=== PATIENT | male | born 1995 | race Caucasian/White ===

== ENCOUNTER 2017-04-29 22:46 | Emergency (ER) | payer MEDICARE, OTHER ==
[~2017-04-29] VITALS: Ht 175.3 cm; Wt 136.4 kg
[~2017-04-29 22:46] MED LIST: AMIT10TA6 PO; DIVA250T4 PO; OLAN15TA2 PO
[2017-04-29] MEDS ORDERED: OLANZapine 5 MG TABLET PO ONE (23:00)
[2017-04-29] MEDS ORDERED: LORazepam 2 MG TABLET PO ONE (23:00)
[2017-04-29] MEDS ORDERED: DiphenhydrAMINE HCL 25 MG CAPSULE PO ONE (23:00)
[2017-04-29] MEDS ORDERED: DIPH50 PO (23:02)
[2017-04-29] MEDS ORDERED: OLAN10TA3 PO (23:02)
[2017-04-29] MEDS ORDERED: OMEG-135 PO (23:02)
[2017-04-29] MEDS ORDERED: QUET200T PO (23:02)
[2017-04-29] MEDS ORDERED: TRAZ150 PO (23:02)
[2017-04-29] MEDS ORDERED: ALBU8HFA4 IH (23:02)
[2017-04-29] MEDS ORDERED: PRAZ2 PO (23:02)
[2017-04-29] MEDS ORDERED: SERT100T12 PO (23:02)
[2017-04-29] MEDS ORDERED: OMEP20 PO (23:02)
[2017-04-29] MEDS ORDERED: GABA-533 PO (23:02)
[2017-04-29] MEDS ORDERED: TOPI100T37 PO (23:02)
[2017-04-30 00:22] VITALS: BP 131/76
== END 2017-04-30 00:59 | disposition home or self-care (01) ==
LOC: EMS 23:08
DX: F32.9 Major depressive disorder, single episode, unspecified (principal); J45.909 Unspecified asthma, uncomplicated; F20.9 Schizophrenia, unspecified; F17.210 Nicotine dependence, cigarettes, uncomplicated; F11.10 Opioid abuse, uncomplicated; F12.90 Cannabis use, unspecified, uncomplicated; F19.90 Other psychoactive substance use, unspecified, uncomplicated
CPT/HCPCS: 99284

== ENCOUNTER 2017-12-02 21:07 | Emergency (ER) | payer MEDICARE, OTHER ==
[~2017-12-02] VITALS: Ht 175.3 cm; Wt 137.3 kg
[~2017-12-02 21:07] MED LIST changes: +ALBU8HFA4 IH; +DIPH50 PO; +GABA-533 PO; +OLAN10TA3 PO; +OMEG-135 PO; +OMEP20 PO; +PRAZ2 PO; +QUET200T PO; +SERT100T12 PO; +TOPI100T37 PO; +TRAZ150 PO
[2017-12-02] MEDS ORDERED: TERB250T51 PO (21:36)
[2017-12-02] MEDS ORDERED: DIPH50 PO (21:36)
[2017-12-02] MEDS ORDERED: OMEP20 PO (21:36)
[2017-12-02] MEDS ORDERED: HALO5TAB2 PO (21:36)
[2017-12-02] MEDS ORDERED: OLAN10VI3 IM (21:36)
[2017-12-02] MEDS ORDERED: OLAN10TA3 PO ×2 (21:36)
[2017-12-02] MEDS ORDERED: HALO5I IM (21:36)
[2017-12-02] MEDS ORDERED: QUET100T PO (21:36)
[2017-12-02] MEDS ORDERED: GABA-531 PO (21:36)
[2017-12-02] MEDS ORDERED: VALP250 PO ×2 (21:36)
[2017-12-02] MEDS ORDERED: OLAN10VI3 PO (21:36)
[2017-12-02 21:43] LABS: BASOPHILS % (AUTO) 0.5 % (0.0-2.0); EOSINOPHILS % (AUTO) 1.7 % (1.0-6.0); HEMATOCRIT 41.4 % (41-53); HEMOGLOBIN 14.3 g/dL (13.5-17.5); LYMPHOCYTES # (AUTO) 2.6 K/uL (1.0-4.8); LYMPHOCYTES % (AUTO) 31.2 % (22.0-44.0); MEAN CORPUSCULAR HEMOGLOBIN 34.1 pg (26.0-34.0); MEAN CORPUSCULAR HGB CONC 34.5 G/dL (31.0-37.0); MEAN CORPUSCULAR VOLUME 99 fL (80-100); MONOCYTES # (AUTO) 0.8 K/uL (0.1-1.0); NEUTROPHILS # (AUTO) 4.8 K/uL (1.8-7.7); NEUTROPHILS % (AUTO) 57.6 % (40.0-70.0); PLATELET COUNT (AUTO) 236 K/uL (150-450); RED BLOOD CELL COUNT(AUTO) 4.19 MIL/uL (4.50-5.90); RED CELL DISTRIBUTION WIDTH 13.2 % (11.5-14.5)
[2017-12-02 21:50] LABS: AMPHET/METH SCREEN,URINE NEGATIVE (NEGATIVE); BARBITURATE SCREEN, URINE NEGATIVE (NEGATIVE); BENZODIAZEPINES SCREEN,URINE NEGATIVE (NEGATIVE); CANNABINOID SCREEN,URINE NEGATIVE (NEGATIVE); COCAINE SCREEN,URINE NEGATIVE (NEGATIVE); METHADONE SCREEN, URINE NEGATIVE (NEGATIVE); OPIATE SCREEN,URINE NEGATIVE (NEGATIVE)
[2017-12-02 21:51] LABS: PHENCYCLIDINE SCREEN,URINE NEGATIVE (NEGATIVE)
[2017-12-02 21:56] LABS: ANION GAP 13 mmol/L (8-16); CALCIUM, TOTAL 8.7 mg/dL (8.8-10.5); CARBON DIOXIDE 25 mmol/L (22-29); CHLORIDE 104 mmol/L (98-107); CREATININE 0.95 mg/dL (0.60-1.30); GLOMERULAR FILTR. RATE CALC > 60 mL/min (>60); GLUCOSE,RANDOM 107 mg/dL (70-110); POTASSIUM 3.3 mmol/L (3.5-5.1); SODIUM SERUM 142 mmol/L (136-145); UREA NITROGEN, BLOOD 10 mg/dL (7-18)
[2017-12-02 22:02] LABS: ALANINE AMINOTRANSFERASE 33 U/L (12-78); ALBUMIN 3.5 g/dL (3.4-5.0); ALKALINE PHOSPHATASE 82 U/L (46-116); ASPARTATE AMINOTRANSFERASE 30 U/L (15-37); BILIRUBIN,TOTAL 0.3 mg/dL (0.1-1.0); TOTAL PROTEIN, SERUM 7.3 g/dL (6.4-8.2); VALPROIC ACID 98 mcg/mL (50-100)
[2017-12-02] MEDS ORDERED: POTASSIUM CHLORIDE 20 MEQ ER TABLET PO ONE (22:15)
[2017-12-02] MEDS ORDERED: LORazepam 2 MG TABLET PO ONE (22:15)
[2017-12-03 00:29] VITALS: BP 136/70
== END 2017-12-03 00:30 | disposition home or self-care (01) ==
LOC: EMS 21:09
DX: F20.9 Schizophrenia, unspecified (principal); F32.9 Major depressive disorder, single episode, unspecified; J45.909 Unspecified asthma, uncomplicated; F11.90 Opioid use, unspecified, uncomplicated; F12.90 Cannabis use, unspecified, uncomplicated; F15.90 Other stimulant use, unspecified, uncomplicated; F17.210 Nicotine dependence, cigarettes, uncomplicated; Z79.899 Other long term (current) drug therapy
CPT/HCPCS: 36415; 80053; 80164; 80307; 85025; 99284; G0480

== ENCOUNTER 2018-01-12 12:06 | Emergency (ER) | payer MEDICARE, OTHER ==
[~2018-01-12] VITALS: Ht 175.3 cm; Wt 140.9 kg
[~2018-01-12 12:06] MED LIST changes: -DIVA250T4 PO; +GABA-531 PO; -GABA-533 PO; +HALO5I IM; +HALO5TAB2 PO; +OLAN10VI3 IM; +OLAN10VI3 PO; +QUET100T PO; -SERT100T12 PO; +TERB250T51 PO; +VALP250 PO
[2018-01-12 12:20] VITALS: BP 137/94
[2018-01-12] MEDS ORDERED: LORazepam 2 MG TABLET PO ONE (13:00)
[2018-01-14] MEDS ORDERED: PRAZ1 PO (13:25)
[2018-01-14] MEDS ORDERED: OLAN10TA3 PO (13:25)
[2018-01-14] MEDS ORDERED: TRAZ-219 PO (13:25)
== END 2018-01-12 14:02 | disposition home or self-care (01) ==
LOC: EMS 12:06
DX: F20.9 Schizophrenia, unspecified (principal); F32.9 Major depressive disorder, single episode, unspecified; J45.909 Unspecified asthma, uncomplicated; F17.210 Nicotine dependence, cigarettes, uncomplicated; F11.90 Opioid use, unspecified, uncomplicated; F12.90 Cannabis use, unspecified, uncomplicated; F15.90 Other stimulant use, unspecified, uncomplicated; Z98.890 Other specified postprocedural states; Z79.899 Other long term (current) drug therapy
CPT/HCPCS: 99284

== ENCOUNTER 2018-01-18 18:41 | Inpatient (IN) | payer MEDICARE, MEDICAID ==
[~2018-01-18] VITALS: Ht 175.3 cm; Wt 164.2 kg
[~2018-01-18 18:41] MED LIST changes: -ALBU8HFA4 IH; -AMIT10TA6 PO; -DIPH50 PO; -HALO5I IM; -HALO5TAB2 PO; +LISI-661 PO; +NALT50TA PO; +OLAN10TA20 PO; -OLAN10TA3 PO; -OLAN10VI3 IM; -OLAN10VI3 PO; -OLAN15TA2 PO; -OMEG-135 PO; +PARO-37 PO; +PRAZ1 PO; -PRAZ2 PO; -QUET100T PO; +QUET100T33 PO; -QUET200T PO; +QUET200T29 PO; -TERB250T51 PO; -TRAZ150 PO; -VALP250 PO; +VALP250S23 PO; +[UNRECOGNIZED DRUG - CODE] TP
[2018-01-18 19:39] LABS: BASOPHILS % (AUTO) 0.7 % (0.0-2.0); EOSINOPHILS % (AUTO) 1.9 % (1.0-6.0); HEMATOCRIT 38.7 % (41-53); HEMOGLOBIN 13.3 g/dL (13.5-17.5); LYMPHOCYTES # (AUTO) 1.9 K/uL (1.0-4.8); LYMPHOCYTES % (AUTO) 20.8 % (22.0-44.0); MEAN CORPUSCULAR HEMOGLOBIN 35.1 pg (26.0-34.0); MEAN CORPUSCULAR HGB CONC 34.5 G/dL (31.0-37.0); MEAN CORPUSCULAR VOLUME 102 fL (80-100); MONOCYTES # (AUTO) 0.9 K/uL (0.1-1.0); MONOCYTES % (AUTO) 9.9 % (2.0-9.0); NEUTROPHILS # (AUTO) 5.9 K/uL (1.8-7.7); NEUTROPHILS % (AUTO) 66.7 % (40.0-70.0); PLATELET COUNT (AUTO) 255 K/uL (150-450); RED CELL DISTRIBUTION WIDTH 12.9 % (11.5-14.5)
[2018-01-18 19:50] LABS: ANION GAP 10 mmol/L (8-16); CALCIUM, TOTAL 8.2 mg/dL (8.8-10.5); CARBON DIOXIDE 26 mmol/L (22-29); CHLORIDE 104 mmol/L (98-107); CREATININE 0.73 mg/dL (0.60-1.30); GLOMERULAR FILTR. RATE CALC > 60 mL/min (>60); GLUCOSE,RANDOM 108 mg/dL (70-110); POTASSIUM 3.6 mmol/L (3.5-5.1); SODIUM SERUM 140 mmol/L (136-145); UREA NITROGEN, BLOOD 12 mg/dL (7-18)
[2018-01-18 19:54] LABS: AMPHET/METH SCREEN,URINE NEGATIVE (NEGATIVE); BARBITURATE SCREEN, URINE NEGATIVE (NEGATIVE); BENZODIAZEPINES SCREEN,URINE NEGATIVE (NEGATIVE); CANNABINOID SCREEN,URINE NEGATIVE (NEGATIVE); COCAINE SCREEN,URINE NEGATIVE (NEGATIVE); METHADONE SCREEN, URINE NEGATIVE (NEGATIVE); OPIATE SCREEN,URINE NEGATIVE (NEGATIVE); PHENCYCLIDINE SCREEN,URINE NEGATIVE (NEGATIVE)
[2018-01-18 19:54] LABS: ALANINE AMINOTRANSFERASE 34 U/L (12-78); ALKALINE PHOSPHATASE 83 U/L (46-116); ASPARTATE AMINOTRANSFERASE 18 U/L (15-37); BILIRUBIN,TOTAL 0.2 mg/dL (0.1-1.0); TOTAL PROTEIN, SERUM 6.8 g/dL (6.4-8.2)
[2018-01-18] MEDS ORDERED: DiphenhydrAMINE HCL 25 MG CAPSULE PO ONE (20:15)
[2018-01-18] MEDS ORDERED: HALOPERIDOL 5 MG TABLET PO ONE (20:15)
[2018-01-19] MEDS: HALOPERIDOL 5 MG TABLET PO PRN ×3 (05:55→15:50)
[2018-01-19] MEDS ORDERED: ONDANSETRON HCL 4 MG TABLET PO PRN (08:15)
[2018-01-19] MEDS ORDERED: CloNIDine HCL 0.1 MG TABLET PO PRN (08:15)
[2018-01-19] MEDS ORDERED: LOPERAMIDE HCL 2 MG CAPSULE PO PRN (08:15)
[2018-01-19] MEDS ORDERED: PETROLATUM,WHITE 71 GM JELLY TP PRN (08:15)
[2018-01-19] MEDS ORDERED: MAG HYDROX/AL HYDROX/SIMETH ES 30 ML SUSPENSION UDCUP PO PRN (08:15)
[2018-01-19] MEDS ORDERED: MAGNESIUM HYDROXIDE SUSPENSION 30 ML UDCUP PO PRN (08:15)
[2018-01-19] MEDS ORDERED: BACITRACIN 28.4 GM OINTMENT TP PRN (08:15)
[2018-01-19] MEDS: LISINOPRIL 10 MG TABLET PO SCH (08:47)
[2018-01-19] MEDS: LORazepam 2 MG TABLET PO PRN ×2 (10:23→15:50)
[2018-01-19 11:20] VITALS: BP 148/66
[2018-01-19 17:53] VITALS: BP 137/91
[2018-01-20] MEDS: HALOPERIDOL 5 MG TABLET PO PRN ×2 (07:27→11:31)
[2018-01-20] MEDS: LORazepam 2 MG TABLET PO PRN ×2 (07:27→11:31)
[2018-01-20] MEDS: LISINOPRIL 10 MG TABLET PO SCH (07:27)
[2018-01-20 08:19] VITALS: BP 128/84
[2018-01-20] MEDS: TOPIRAMATE 100 MG TABLET PO SCH ×2 (11:08→17:08)
[2018-01-20] MEDS: NALTREXONE HCL 50 MG TABLET PO SCH (11:08)
[2018-01-20] MEDS: PARoxetine HCL 20 MG TABLET PO SCH (11:10)
[2018-01-20] MEDS: QUEtiapine FUMARATE 100 MG TABLET PO SCH ×2 (11:11→17:08)
[2018-01-20] MEDS: OLANZapine 10 MG TABLET PO SCH ×2 (11:11→20:50)
[2018-01-20] MEDS: GABAPENTIN 300 MG CAPSULE PO SCH ×2 (11:13→17:08)
[2018-01-20 16:00] VITALS: BP 125/80
[2018-01-20] MEDS: QUEtiapine FUMARATE 200 MG TABLET PO SCH (20:51)
[2018-01-20] MEDS: VALPROIC ACID 250 MG/5 ML SYRUP UDCUP PO SCH (20:51)
[2018-01-21] MEDS: VALPROIC ACID 250 MG/5 ML SYRUP UDCUP PO SCH ×2 (08:07→20:19)
[2018-01-21] MEDS: GABAPENTIN 300 MG CAPSULE PO SCH ×3 (08:08→13:25)
[2018-01-21] MEDS: QUEtiapine FUMARATE 100 MG TABLET PO SCH ×3 (08:08→16:28)
[2018-01-21] MEDS: LISINOPRIL 10 MG TABLET PO SCH (08:08)
[2018-01-21] MEDS: TOPIRAMATE 100 MG TABLET PO SCH ×2 (08:08→16:28)
[2018-01-21] MEDS: NALTREXONE HCL 50 MG TABLET PO SCH (08:08)
[2018-01-21] MEDS: PARoxetine HCL 20 MG TABLET PO SCH (08:08)
[2018-01-21] MEDS: OLANZapine 10 MG TABLET PO SCH ×2 (08:09→20:18)
[2018-01-21] MEDS: LORazepam 2 MG TABLET PO PRN ×2 (09:00→16:28)
[2018-01-21] MEDS: HALOPERIDOL 5 MG TABLET PO PRN (09:00)
[2018-01-21 14:13] VITALS: BP 144/89
[2018-01-21] MEDS: QUEtiapine FUMARATE 200 MG TABLET PO SCH (20:18)
[2018-01-21 21:57] VITALS: BP 136/88
[2018-01-22] MEDS: ZOLPIDEM TARTRATE 10 MG TABLET PO PRN ×2 (01:31→21:23)
[2018-01-22 08:05] VITALS: BP 142/88
[2018-01-22] MEDS: QUEtiapine FUMARATE 100 MG TABLET PO SCH ×3 (09:37→17:22)
[2018-01-22] MEDS: NALTREXONE HCL 50 MG TABLET PO SCH (09:37)
[2018-01-22] MEDS: GABAPENTIN 300 MG CAPSULE PO SCH ×3 (09:37→17:22)
[2018-01-22] MEDS: VALPROIC ACID 250 MG/5 ML SYRUP UDCUP PO SCH ×2 (09:37→20:09)
[2018-01-22] MEDS: PARoxetine HCL 20 MG TABLET PO SCH (09:37)
[2018-01-22] MEDS: LISINOPRIL 10 MG TABLET PO SCH (09:38)
[2018-01-22] MEDS: TOPIRAMATE 100 MG TABLET PO SCH ×2 (09:38→17:22)
[2018-01-22] MEDS: OLANZapine 10 MG TABLET PO SCH ×2 (09:38→20:09)
[2018-01-22] MEDS: HALOPERIDOL 5 MG TABLET PO PRN (18:40)
[2018-01-22] MEDS: LORazepam 2 MG TABLET PO PRN (18:40)
[2018-01-22] MEDS: QUEtiapine FUMARATE 200 MG TABLET PO SCH (20:09)
[2018-01-22 22:23] VITALS: BP 137/92
[2018-01-23] MEDS: HALOPERIDOL 5 MG TABLET PO PRN ×3 (07:27→16:30)
[2018-01-23] MEDS: VALPROIC ACID 250 MG/5 ML SYRUP UDCUP PO SCH ×2 (07:27→20:28)
[2018-01-23] MEDS: LORazepam 2 MG TABLET PO PRN ×3 (07:27→16:30)
[2018-01-23] MEDS: NALTREXONE HCL 50 MG TABLET PO SCH (07:27)
[2018-01-23] MEDS: LISINOPRIL 10 MG TABLET PO SCH (07:27)
[2018-01-23] MEDS: OLANZapine 10 MG TABLET PO SCH ×2 (07:27→20:28)
[2018-01-23] MEDS: PARoxetine HCL 20 MG TABLET PO SCH (07:27)
[2018-01-23] MEDS: GABAPENTIN 300 MG CAPSULE PO SCH ×3 (07:27→16:30)
[2018-01-23] MEDS: QUEtiapine FUMARATE 100 MG TABLET PO SCH ×3 (07:27→16:30)
[2018-01-23] MEDS: TOPIRAMATE 100 MG TABLET PO SCH ×2 (07:28→16:30)
[2018-01-23 08:00] VITALS: BP 141/94
[2018-01-23 18:18] VITALS: BP 118/95
[2018-01-23] MEDS: QUEtiapine FUMARATE 200 MG TABLET PO SCH (20:28)
[2018-01-23] MEDS: ZOLPIDEM TARTRATE 10 MG TABLET PO PRN (20:35)
[2018-01-24] MEDS: PARoxetine HCL 20 MG TABLET PO SCH (07:44)
[2018-01-24] MEDS: QUEtiapine FUMARATE 100 MG TABLET PO SCH ×3 (07:44→16:27)
[2018-01-24] MEDS: VALPROIC ACID 250 MG/5 ML SYRUP UDCUP PO SCH ×2 (07:44→21:27)
[2018-01-24] MEDS: LISINOPRIL 10 MG TABLET PO SCH (07:44)
[2018-01-24] MEDS: NALTREXONE HCL 50 MG TABLET PO SCH (07:44)
[2018-01-24] MEDS: GABAPENTIN 300 MG CAPSULE PO SCH ×3 (07:45→16:27)
[2018-01-24] MEDS: TOPIRAMATE 100 MG TABLET PO SCH ×2 (07:45→16:27)
[2018-01-24] MEDS: OLANZapine 10 MG TABLET PO SCH ×2 (07:45→21:28)
[2018-01-24] MEDS: HALOPERIDOL 5 MG TABLET PO PRN ×3 (08:20→17:19)
[2018-01-24] MEDS: LORazepam 2 MG TABLET PO PRN ×3 (08:20→17:19)
[2018-01-24 08:32] VITALS: BP 135/79
[2018-01-24] MEDS: NICOTINE 21 MG/24 HOUR PATCH TD SCH (13:33)
[2018-01-24 16:18] VITALS: BP 125/77
[2018-01-24] MEDS: QUEtiapine FUMARATE 200 MG TABLET PO SCH (21:28)
[2018-01-24] MEDS: IBUPROFEN 600 MG TABLET PO PRN (23:02)
[2018-01-25] MEDS: NALTREXONE HCL 50 MG TABLET PO SCH (07:35)
[2018-01-25] MEDS: QUEtiapine FUMARATE 100 MG TABLET PO SCH ×3 (07:35→16:07)
[2018-01-25] MEDS: LISINOPRIL 10 MG TABLET PO SCH (07:35)
[2018-01-25] MEDS: OLANZapine 10 MG TABLET PO SCH ×2 (07:35→22:11)
[2018-01-25] MEDS: GABAPENTIN 300 MG CAPSULE PO SCH ×3 (07:35→16:07)
[2018-01-25] MEDS: VALPROIC ACID 250 MG/5 ML SYRUP UDCUP PO SCH ×2 (07:35→22:11)
[2018-01-25] MEDS: TOPIRAMATE 100 MG TABLET PO SCH ×2 (07:36→16:07)
[2018-01-25] MEDS: PARoxetine HCL 20 MG TABLET PO SCH (08:20)
[2018-01-25] MEDS: NICOTINE 21 MG/24 HOUR PATCH TD SCH (08:21)
[2018-01-25 08:36] VITALS: BP 147/87
[2018-01-25] MEDS: LORazepam 2 MG TABLET PO PRN (15:24)
[2018-01-25] MEDS: HALOPERIDOL 5 MG TABLET PO PRN (15:25)
[2018-01-25 17:34] VITALS: BP 139/91
[2018-01-25] MEDS: QUEtiapine FUMARATE 200 MG TABLET PO SCH (22:10)
[2018-01-26] MEDS: ZOLPIDEM TARTRATE 10 MG TABLET PO PRN ×2 (01:22→21:35)
[2018-01-26] MEDS: LORazepam 2 MG TABLET PO PRN ×2 (01:22→15:52)
[2018-01-26 08:05] VITALS: BP 125/80
[2018-01-26] MEDS: NALTREXONE HCL 50 MG TABLET PO SCH (09:04)
[2018-01-26] MEDS: GABAPENTIN 300 MG CAPSULE PO SCH ×3 (09:04→16:58)
[2018-01-26] MEDS: TOPIRAMATE 100 MG TABLET PO SCH ×2 (09:04→16:58)
[2018-01-26] MEDS: PARoxetine HCL 20 MG TABLET PO SCH (09:04)
[2018-01-26] MEDS: LISINOPRIL 10 MG TABLET PO SCH (09:04)
[2018-01-26] MEDS: OLANZapine 10 MG TABLET PO SCH ×2 (09:04→20:27)
[2018-01-26] MEDS: QUEtiapine FUMARATE 100 MG TABLET PO SCH ×3 (09:04→16:58)
[2018-01-26] MEDS: VALPROIC ACID 250 MG/5 ML SYRUP UDCUP PO SCH ×2 (09:05→20:27)
[2018-01-26] MEDS: NICOTINE 21 MG/24 HOUR PATCH TD SCH (09:09)
[2018-01-26] MEDS: HALOPERIDOL 5 MG TABLET PO PRN (15:52)
[2018-01-26 16:48] VITALS: BP 139/80
[2018-01-26] MEDS: QUEtiapine FUMARATE 200 MG TABLET PO SCH (20:27)
[2018-01-27] MEDS: LORazepam 2 MG TABLET PO PRN ×2 (04:38→19:04)
[2018-01-27] MEDS: IBUPROFEN 600 MG TABLET PO PRN (07:11)
[2018-01-27 08:00] VITALS: BP 128/79
[2018-01-27] MEDS: GABAPENTIN 300 MG CAPSULE PO SCH ×3 (08:03→16:47)
[2018-01-27] MEDS: QUEtiapine FUMARATE 100 MG TABLET PO SCH ×3 (08:04→16:47)
[2018-01-27] MEDS: NALTREXONE HCL 50 MG TABLET PO SCH (08:04)
[2018-01-27] MEDS: PARoxetine HCL 20 MG TABLET PO SCH (08:04)
[2018-01-27] MEDS: TOPIRAMATE 100 MG TABLET PO SCH ×2 (08:04→16:47)
[2018-01-27] MEDS: OLANZapine 10 MG TABLET PO SCH ×2 (08:04→20:37)
[2018-01-27] MEDS: LISINOPRIL 10 MG TABLET PO SCH (08:04)
[2018-01-27] MEDS: NICOTINE 21 MG/24 HOUR PATCH TD SCH (08:05)
[2018-01-27] MEDS: VALPROIC ACID 250 MG/5 ML SYRUP UDCUP PO SCH ×2 (08:11→20:37)
[2018-01-27 16:13] VITALS: BP 129/80
[2018-01-27] MEDS: HALOPERIDOL 5 MG TABLET PO PRN (19:04)
[2018-01-27] MEDS: QUEtiapine FUMARATE 200 MG TABLET PO SCH (20:36)
[2018-01-27] MEDS: ZOLPIDEM TARTRATE 10 MG TABLET PO PRN (21:18)
[2018-01-28] MEDS: OLANZapine 10 MG TABLET PO SCH ×2 (07:35→20:38)
[2018-01-28] MEDS: VALPROIC ACID 250 MG/5 ML SYRUP UDCUP PO SCH ×2 (07:35→20:39)
[2018-01-28] MEDS: PARoxetine HCL 20 MG TABLET PO SCH (07:35)
[2018-01-28] MEDS: GABAPENTIN 300 MG CAPSULE PO SCH ×3 (07:35→16:03)
[2018-01-28] MEDS: QUEtiapine FUMARATE 100 MG TABLET PO SCH ×3 (07:35→16:04)
[2018-01-28] MEDS: LISINOPRIL 10 MG TABLET PO SCH (07:35)
[2018-01-28] MEDS: HALOPERIDOL 5 MG TABLET PO PRN ×3 (07:35→19:31)
[2018-01-28] MEDS: LORazepam 2 MG TABLET PO PRN ×3 (07:35→19:31)
[2018-01-28] MEDS: TOPIRAMATE 100 MG TABLET PO SCH ×2 (07:36→16:04)
[2018-01-28] MEDS: NICOTINE 21 MG/24 HOUR PATCH TD SCH (07:36)
[2018-01-28] MEDS: NALTREXONE HCL 50 MG TABLET PO SCH (07:36)
[2018-01-28 08:13] VITALS: BP 129/82
[2018-01-28 16:20] VITALS: BP 133/90
[2018-01-28] MEDS: QUEtiapine FUMARATE 200 MG TABLET PO SCH (20:38)
[2018-01-29] MEDS: TOPIRAMATE 100 MG TABLET PO SCH ×2 (08:05→17:34)
[2018-01-29] MEDS: PARoxetine HCL 20 MG TABLET PO SCH (08:05)
[2018-01-29] MEDS: QUEtiapine FUMARATE 100 MG TABLET PO SCH ×3 (08:05→17:34)
[2018-01-29] MEDS: NALTREXONE HCL 50 MG TABLET PO SCH (08:05)
[2018-01-29] MEDS: GABAPENTIN 300 MG CAPSULE PO SCH ×3 (08:05→17:34)
[2018-01-29] MEDS: OLANZapine 10 MG TABLET PO SCH ×2 (08:05→20:01)
[2018-01-29] MEDS: LISINOPRIL 10 MG TABLET PO SCH (08:05)
[2018-01-29] MEDS: VALPROIC ACID 250 MG/5 ML SYRUP UDCUP PO SCH ×2 (08:06→20:01)
[2018-01-29] MEDS: LORazepam 2 MG TABLET PO PRN ×2 (08:07→12:11)
[2018-01-29 08:11] VITALS: BP 141/96
[2018-01-29] MEDS: NICOTINE 21 MG/24 HOUR PATCH TD SCH (08:13)
[2018-01-29] MEDS: HALOPERIDOL 5 MG TABLET PO PRN (14:49)
[2018-01-29 16:32] VITALS: BP 136/95
[2018-01-29] MEDS: QUEtiapine FUMARATE 200 MG TABLET PO SCH (20:01)
[2018-01-30 00:45] VITALS: BP 115/89
[2018-01-30] MEDS: IBUPROFEN 600 MG TABLET PO PRN (00:48)
[2018-01-30] MEDS: GABAPENTIN 300 MG CAPSULE PO SCH ×3 (08:12→16:28)
[2018-01-30 08:13] VITALS: BP 134/81
[2018-01-30] MEDS: HALOPERIDOL 5 MG TABLET PO PRN ×3 (08:13→20:45)
[2018-01-30] MEDS: VALPROIC ACID 250 MG/5 ML SYRUP UDCUP PO SCH ×2 (08:13→20:13)
[2018-01-30] MEDS: OLANZapine 10 MG TABLET PO SCH ×2 (08:13→20:13)
[2018-01-30] MEDS: LORazepam 2 MG TABLET PO PRN ×2 (08:13→12:22)
[2018-01-30] MEDS: LISINOPRIL 10 MG TABLET PO SCH (08:14)
[2018-01-30] MEDS: QUEtiapine FUMARATE 100 MG TABLET PO SCH ×3 (08:14→16:28)
[2018-01-30] MEDS: TOPIRAMATE 100 MG TABLET PO SCH ×2 (08:15→16:28)
[2018-01-30] MEDS: NALTREXONE HCL 50 MG TABLET PO SCH (08:15)
[2018-01-30] MEDS: PARoxetine HCL 20 MG TABLET PO SCH (08:15)
[2018-01-30] MEDS: NICOTINE 21 MG/24 HOUR PATCH TD SCH (09:06)
[2018-01-30] MEDS ORDERED: LORazepam 2 MG/ML VIAL ONE (17:08)
[2018-01-30] MEDS ORDERED: DiphenhydrAMINE HCL 50 MG/ML VIAL ONE (17:09)
[2018-01-30] MEDS ORDERED: HALOPERIDOL LACTATE 5 MG/ML VIAL ONE (17:09)
[2018-01-30] MEDS ORDERED: LORazepam 2 MG/ML VIAL IM ONE (17:15)
[2018-01-30] MEDS ORDERED: DiphenhydrAMINE HCL 50 MG/ML VIAL IM ONE (17:15)
[2018-01-30] MEDS ORDERED: HALOPERIDOL LACTATE 5 MG/ML VIAL IM ONE (17:15)
[2018-01-30 17:39] VITALS: BP 130/84
[2018-01-30] MEDS: QUEtiapine FUMARATE 200 MG TABLET PO SCH (20:13)
[2018-01-30] MEDS: ZOLPIDEM TARTRATE 10 MG TABLET PO PRN (20:45)
[2018-01-31 09:06] VITALS: BP 128/74
[2018-01-31] MEDS: GABAPENTIN 300 MG CAPSULE PO SCH ×3 (09:08→16:19)
[2018-01-31] MEDS: PARoxetine HCL 20 MG TABLET PO SCH (09:08)
[2018-01-31] MEDS: QUEtiapine FUMARATE 100 MG TABLET PO SCH ×3 (09:08→16:19)
[2018-01-31] MEDS: NALTREXONE HCL 50 MG TABLET PO SCH (09:08)
[2018-01-31] MEDS: VALPROIC ACID 250 MG/5 ML SYRUP UDCUP PO SCH ×2 (09:08→21:14)
[2018-01-31] MEDS: OLANZapine 10 MG TABLET PO SCH ×2 (09:09→21:14)
[2018-01-31] MEDS: LISINOPRIL 10 MG TABLET PO SCH (09:09)
[2018-01-31] MEDS: TOPIRAMATE 100 MG TABLET PO SCH ×2 (09:09→16:19)
[2018-01-31] MEDS: NICOTINE 21 MG/24 HOUR PATCH TD SCH (09:09)
[2018-01-31] MEDS: HALOPERIDOL 5 MG TABLET PO PRN (14:39)
[2018-01-31] MEDS: LORazepam 2 MG TABLET PO PRN (14:39)
[2018-01-31 15:52] VITALS: BP 136/82
[2018-01-31 16:00] VITALS: BP 136/82
[2018-01-31] MEDS: QUEtiapine FUMARATE 200 MG TABLET PO SCH (21:14)
[2018-01-31] MEDS: ZOLPIDEM TARTRATE 10 MG TABLET PO PRN (22:35)
[2018-01-31] MEDS: IBUPROFEN 600 MG TABLET PO PRN (23:26)
[2018-01-31 23:27] VITALS: BP 133/80
[2018-02-01] MEDS: LORazepam 2 MG TABLET PO PRN ×2 (07:40→12:27)
[2018-02-01] MEDS: HALOPERIDOL 5 MG TABLET PO PRN ×2 (07:40→12:27)
[2018-02-01 08:02] VITALS: BP 130/82
[2018-02-01] MEDS: GABAPENTIN 300 MG CAPSULE PO SCH ×3 (08:10→16:00)
[2018-02-01] MEDS: VALPROIC ACID 250 MG/5 ML SYRUP UDCUP PO SCH ×2 (08:10→20:39)
[2018-02-01] MEDS: NICOTINE 21 MG/24 HOUR PATCH TD SCH (08:10)
[2018-02-01] MEDS: OLANZapine 10 MG TABLET PO SCH ×2 (08:11→20:39)
[2018-02-01] MEDS: PARoxetine HCL 20 MG TABLET PO SCH (08:11)
[2018-02-01] MEDS: NALTREXONE HCL 50 MG TABLET PO SCH (08:11)
[2018-02-01] MEDS: TOPIRAMATE 100 MG TABLET PO SCH ×2 (08:11→16:00)
[2018-02-01] MEDS: LISINOPRIL 10 MG TABLET PO SCH (08:11)
[2018-02-01] MEDS: QUEtiapine FUMARATE 100 MG TABLET PO SCH ×3 (08:12→16:00)
[2018-02-01] MEDS: QUEtiapine FUMARATE 200 MG TABLET PO SCH (20:39)
[2018-02-01 22:18] VITALS: BP 125/85
[2018-02-01] MEDS: ZOLPIDEM TARTRATE 10 MG TABLET PO PRN (23:06)
[2018-02-02 08:00] VITALS: BP 119/95
[2018-02-02] MEDS: QUEtiapine FUMARATE 100 MG TABLET PO SCH ×3 (09:33→17:26)
[2018-02-02] MEDS: PARoxetine HCL 20 MG TABLET PO SCH (09:33)
[2018-02-02] MEDS: LISINOPRIL 10 MG TABLET PO SCH (09:33)
[2018-02-02] MEDS: GABAPENTIN 300 MG CAPSULE PO SCH ×3 (09:33→17:26)
[2018-02-02] MEDS: NICOTINE 21 MG/24 HOUR PATCH TD SCH (09:33)
[2018-02-02] MEDS: VALPROIC ACID 250 MG/5 ML SYRUP UDCUP PO SCH ×2 (09:33→20:28)
[2018-02-02] MEDS: OLANZapine 10 MG TABLET PO SCH ×2 (09:33→20:28)
[2018-02-02] MEDS: TOPIRAMATE 100 MG TABLET PO SCH ×2 (09:33→17:26)
[2018-02-02] MEDS: NALTREXONE HCL 50 MG TABLET PO SCH (09:33)
[2018-02-02 16:48] VITALS: BP 130/75
[2018-02-02] MEDS: LORazepam 2 MG TABLET PO PRN (17:26)
[2018-02-02] MEDS: QUEtiapine FUMARATE 200 MG TABLET PO SCH (20:27)
[2018-02-02] MEDS: ZOLPIDEM TARTRATE 10 MG TABLET PO PRN (20:29)
[2018-02-03] MEDS: LORazepam 2 MG TABLET PO PRN ×3 (01:23→17:00)
[2018-02-03 08:00] VITALS: BP 139/77
[2018-02-03] MEDS: VALPROIC ACID 250 MG/5 ML SYRUP UDCUP PO SCH ×2 (08:25→20:29)
[2018-02-03] MEDS: NALTREXONE HCL 50 MG TABLET PO SCH (08:25)
[2018-02-03] MEDS: OLANZapine 10 MG TABLET PO SCH ×2 (08:26→20:29)
[2018-02-03] MEDS: PARoxetine HCL 20 MG TABLET PO SCH (08:26)
[2018-02-03] MEDS: GABAPENTIN 300 MG CAPSULE PO SCH ×3 (08:26→16:23)
[2018-02-03] MEDS: QUEtiapine FUMARATE 100 MG TABLET PO SCH ×3 (08:26→16:23)
[2018-02-03] MEDS: TOPIRAMATE 100 MG TABLET PO SCH ×2 (08:26→16:23)
[2018-02-03] MEDS: LISINOPRIL 10 MG TABLET PO SCH (08:26)
[2018-02-03] MEDS: NICOTINE 21 MG/24 HOUR PATCH TD SCH (08:27)
[2018-02-03] MEDS: HYDROCORTISONE 0.5% 30 GM CREAM TP SCH ×2 (10:53→16:23)
[2018-02-03] MEDS: HALOPERIDOL 5 MG TABLET PO PRN ×2 (12:46→17:00)
[2018-02-03 16:47] VITALS: BP 142/86
[2018-02-03] MEDS: ZOLPIDEM TARTRATE 10 MG TABLET PO PRN (20:29)
[2018-02-03] MEDS: QUEtiapine FUMARATE 200 MG TABLET PO SCH (20:29)
[2018-02-04] MEDS: LISINOPRIL 10 MG TABLET PO SCH (07:56)
[2018-02-04] MEDS: VALPROIC ACID 250 MG/5 ML SYRUP UDCUP PO SCH ×2 (07:56→20:11)
[2018-02-04] MEDS: QUEtiapine FUMARATE 100 MG TABLET PO SCH ×3 (07:56→16:10)
[2018-02-04] MEDS: OLANZapine 10 MG TABLET PO SCH ×2 (07:56→20:11)
[2018-02-04] MEDS: TOPIRAMATE 100 MG TABLET PO SCH ×2 (07:56→16:11)
[2018-02-04] MEDS: GABAPENTIN 300 MG CAPSULE PO SCH ×3 (07:56→16:10)
[2018-02-04] MEDS: NALTREXONE HCL 50 MG TABLET PO SCH (07:56)
[2018-02-04] MEDS: PARoxetine HCL 20 MG TABLET PO SCH (07:56)
[2018-02-04] MEDS: LORazepam 2 MG TABLET PO PRN ×2 (07:57→19:22)
[2018-02-04] MEDS: HALOPERIDOL 5 MG TABLET PO PRN ×2 (07:57→19:22)
[2018-02-04] MEDS: NICOTINE 21 MG/24 HOUR PATCH TD SCH (07:58)
[2018-02-04] MEDS: IBUPROFEN 600 MG TABLET PO PRN (08:11)
[2018-02-04 08:14] VITALS: BP 145/86
[2018-02-04] MEDS: HYDROCORTISONE 0.5% 30 GM CREAM TP SCH ×2 (09:00→16:10)
[2018-02-04 18:42] VITALS: BP 109/72
[2018-02-04] MEDS: QUEtiapine FUMARATE 200 MG TABLET PO SCH (20:11)
[2018-02-04] MEDS: ZOLPIDEM TARTRATE 10 MG TABLET PO PRN (20:11)
[2018-02-05] MEDS: OLANZapine 10 MG TABLET PO SCH ×2 (08:15→20:05)
[2018-02-05] MEDS: PARoxetine HCL 20 MG TABLET PO SCH (08:15)
[2018-02-05] MEDS: LISINOPRIL 20 MG TABLET PO SCH (08:15)
[2018-02-05] MEDS: VALPROIC ACID 250 MG/5 ML SYRUP UDCUP PO SCH ×2 (08:15→20:05)
[2018-02-05] MEDS: QUEtiapine FUMARATE 100 MG TABLET PO SCH ×3 (08:15→16:31)
[2018-02-05] MEDS: GABAPENTIN 300 MG CAPSULE PO SCH ×3 (08:15→16:31)
[2018-02-05] MEDS: NICOTINE 21 MG/24 HOUR PATCH TD SCH (08:16)
[2018-02-05] MEDS: NALTREXONE HCL 50 MG TABLET PO SCH (08:16)
[2018-02-05] MEDS: TOPIRAMATE 100 MG TABLET PO SCH ×2 (08:16→16:31)
[2018-02-05] MEDS: HYDROCORTISONE 0.5% 30 GM CREAM TP SCH ×2 (08:17→16:32)
[2018-02-05 08:32] VITALS: BP 112/64
[2018-02-05] MEDS: HALOPERIDOL 5 MG TABLET PO PRN ×2 (16:31→23:37)
[2018-02-05] MEDS: LORazepam 2 MG TABLET PO PRN ×2 (16:31→23:37)
[2018-02-05 16:48] VITALS: BP 150/96
[2018-02-05] MEDS: QUEtiapine FUMARATE 200 MG TABLET PO SCH (20:05)
[2018-02-05] MEDS: ZOLPIDEM TARTRATE 10 MG TABLET PO PRN (20:06)
[2018-02-06] MEDS: LISINOPRIL 20 MG TABLET PO SCH (08:04)
[2018-02-06] MEDS: VALPROIC ACID 250 MG/5 ML SYRUP UDCUP PO SCH ×2 (08:04→22:17)
[2018-02-06] MEDS: QUEtiapine FUMARATE 100 MG TABLET PO SCH ×3 (08:05→16:01)
[2018-02-06] MEDS: NALTREXONE HCL 50 MG TABLET PO SCH (08:05)
[2018-02-06] MEDS: TOPIRAMATE 100 MG TABLET PO SCH ×2 (08:05→16:00)
[2018-02-06] MEDS: GABAPENTIN 300 MG CAPSULE PO SCH ×3 (08:05→16:00)
[2018-02-06] MEDS: OLANZapine 10 MG TABLET PO SCH ×2 (08:05→22:17)
[2018-02-06] MEDS: PARoxetine HCL 20 MG TABLET PO SCH (08:05)
[2018-02-06] MEDS: HYDROCORTISONE 0.5% 30 GM CREAM TP SCH ×2 (08:07→16:00)
[2018-02-06] MEDS: NICOTINE 21 MG/24 HOUR PATCH TD SCH (08:08)
[2018-02-06 08:31] VITALS: BP 148/68
[2018-02-06] MEDS: LORazepam 2 MG TABLET PO PRN ×2 (08:56→16:00)
[2018-02-06] MEDS: HALOPERIDOL 5 MG TABLET PO PRN ×2 (08:56→16:00)
[2018-02-06 16:00] VITALS: BP 148/95
[2018-02-06] MEDS: QUEtiapine FUMARATE 200 MG TABLET PO SCH (22:17)
[2018-02-07] MEDS: QUEtiapine FUMARATE 100 MG TABLET PO SCH ×3 (07:47→16:23)
[2018-02-07] MEDS: HALOPERIDOL 5 MG TABLET PO PRN ×2 (07:47→13:02)
[2018-02-07] MEDS: LORazepam 2 MG TABLET PO PRN ×2 (07:47→13:03)
[2018-02-07] MEDS: LISINOPRIL 20 MG TABLET PO SCH (07:47)
[2018-02-07] MEDS: GABAPENTIN 300 MG CAPSULE PO SCH ×3 (07:47→16:23)
[2018-02-07] MEDS: NALTREXONE HCL 50 MG TABLET PO SCH (07:47)
[2018-02-07] MEDS: OLANZapine 10 MG TABLET PO SCH ×2 (07:47→20:29)
[2018-02-07] MEDS: TOPIRAMATE 100 MG TABLET PO SCH ×2 (07:47→16:23)
[2018-02-07] MEDS: VALPROIC ACID 250 MG/5 ML SYRUP UDCUP PO SCH ×2 (07:48→20:29)
[2018-02-07] MEDS: PARoxetine HCL 20 MG TABLET PO SCH (07:48)
[2018-02-07] MEDS: HYDROCORTISONE 0.5% 30 GM CREAM TP SCH ×2 (07:50→17:44)
[2018-02-07] MEDS: NICOTINE 21 MG/24 HOUR PATCH TD SCH (07:56)
[2018-02-07 08:36] VITALS: BP 111/62
[2018-02-07] MEDS ORDERED: TUBERCULIN, PURIFIED PROTEIN DERIVATIVE 5 TU/0.1 ML SYG ID ONE (11:30)
[2018-02-07 16:46] VITALS: BP 129/82
[2018-02-07] MEDS: QUEtiapine FUMARATE 200 MG TABLET PO SCH (20:29)
[2018-02-08 08:03] VITALS: BP 138/88
[2018-02-08] MEDS: OLANZapine 10 MG TABLET PO SCH ×2 (08:06→20:06)
[2018-02-08] MEDS: PARoxetine HCL 20 MG TABLET PO SCH (08:06)
[2018-02-08] MEDS: GABAPENTIN 300 MG CAPSULE PO SCH ×3 (08:06→16:31)
[2018-02-08] MEDS: NALTREXONE HCL 50 MG TABLET PO SCH (08:06)
[2018-02-08] MEDS: LISINOPRIL 20 MG TABLET PO SCH (08:06)
[2018-02-08] MEDS: TOPIRAMATE 100 MG TABLET PO SCH ×2 (08:06→16:31)
[2018-02-08] MEDS: QUEtiapine FUMARATE 100 MG TABLET PO SCH ×3 (08:06→16:32)
[2018-02-08] MEDS: HALOPERIDOL 5 MG TABLET PO PRN ×2 (08:07→12:12)
[2018-02-08] MEDS: VALPROIC ACID 250 MG/5 ML SYRUP UDCUP PO SCH ×2 (08:07→20:07)
[2018-02-08] MEDS: LORazepam 2 MG TABLET PO PRN ×2 (08:07→12:12)
[2018-02-08] MEDS: IBUPROFEN 600 MG TABLET PO PRN (08:07)
[2018-02-08] MEDS: NICOTINE 21 MG/24 HOUR PATCH TD SCH (08:36)
[2018-02-08] MEDS: HYDROCORTISONE 0.5% 30 GM CREAM TP SCH ×2 (09:30→16:32)
[2018-02-08 16:50] VITALS: BP 123/82
[2018-02-08] MEDS: QUEtiapine FUMARATE 200 MG TABLET PO SCH (20:06)
[2018-02-08] MEDS: ZOLPIDEM TARTRATE 10 MG TABLET PO PRN (22:13)
[2018-02-09 08:36] VITALS: BP 112/74
[2018-02-09] MEDS: TOPIRAMATE 100 MG TABLET PO SCH ×2 (09:25→16:09)
[2018-02-09] MEDS: VALPROIC ACID 250 MG/5 ML SYRUP UDCUP PO SCH ×2 (09:25→20:24)
[2018-02-09] MEDS: NICOTINE 21 MG/24 HOUR PATCH TD SCH (09:25)
[2018-02-09] MEDS: NALTREXONE HCL 50 MG TABLET PO SCH (09:25)
[2018-02-09] MEDS: QUEtiapine FUMARATE 100 MG TABLET PO SCH ×3 (09:26→16:09)
[2018-02-09] MEDS: PARoxetine HCL 20 MG TABLET PO SCH (09:26)
[2018-02-09] MEDS: HYDROCORTISONE 0.5% 30 GM CREAM TP SCH ×2 (09:26→16:09)
[2018-02-09] MEDS: OLANZapine 10 MG TABLET PO SCH ×2 (09:26→20:26)
[2018-02-09] MEDS: LISINOPRIL 20 MG TABLET PO SCH (09:26)
[2018-02-09] MEDS: GABAPENTIN 300 MG CAPSULE PO SCH ×3 (09:26→16:09)
[2018-02-09 10:00] VITALS: BP 124/78
[2018-02-09] MEDS: IBUPROFEN 600 MG TABLET PO PRN ×2 (10:05→18:41)
[2018-02-09] MEDS: HALOPERIDOL 5 MG TABLET PO PRN (12:10)
[2018-02-09] MEDS: LORazepam 2 MG TABLET PO PRN (12:10)
[2018-02-09 16:25] VITALS: BP 128/82
[2018-02-09] MEDS: ALBUTEROL SULFATE HFA 90 MCG/PUFF 8 GM INHALER IH PRN (18:43)
[2018-02-09] MEDS: QUEtiapine FUMARATE 200 MG TABLET PO SCH (20:25)
[2018-02-10 08:30] VITALS: BP 115/65
[2018-02-10] MEDS: NALTREXONE HCL 50 MG TABLET PO SCH (08:44)
[2018-02-10] MEDS: LISINOPRIL 20 MG TABLET PO SCH (08:44)
[2018-02-10] MEDS: QUEtiapine FUMARATE 100 MG TABLET PO SCH ×3 (08:44→16:25)
[2018-02-10] MEDS: GABAPENTIN 300 MG CAPSULE PO SCH ×3 (08:44→16:25)
[2018-02-10] MEDS: OLANZapine 10 MG TABLET PO SCH ×2 (08:44→20:41)
[2018-02-10] MEDS: TOPIRAMATE 100 MG TABLET PO SCH ×2 (08:45→16:25)
[2018-02-10] MEDS: PARoxetine HCL 20 MG TABLET PO SCH (08:45)
[2018-02-10] MEDS: HYDROCORTISONE 0.5% 30 GM CREAM TP SCH ×2 (08:45→16:25)
[2018-02-10] MEDS: NICOTINE 21 MG/24 HOUR PATCH TD SCH (08:45)
[2018-02-10] MEDS: VALPROIC ACID 250 MG/5 ML SYRUP UDCUP PO SCH ×2 (08:46→20:39)
[2018-02-10] MEDS: IBUPROFEN 600 MG TABLET PO PRN ×2 (10:12→20:29)
[2018-02-10] MEDS: ACETAMINOPHEN 325 MG TABLET PO PRN (15:42)
[2018-02-10 16:06] VITALS: BP 116/73
[2018-02-10] MEDS: QUEtiapine FUMARATE 200 MG TABLET PO SCH (20:41)
[2018-02-10 20:46] VITALS: BP 155/78
[2018-02-10] MEDS: HALOPERIDOL 5 MG TABLET PO PRN (21:05)
[2018-02-10] MEDS: LORazepam 2 MG TABLET PO PRN (21:05)
[2018-02-11 08:43] VITALS: BP 123/80
[2018-02-11] MEDS: LISINOPRIL 20 MG TABLET PO SCH (08:59)
[2018-02-11] MEDS: GABAPENTIN 300 MG CAPSULE PO SCH ×3 (08:59→16:03)
[2018-02-11] MEDS: PARoxetine HCL 20 MG TABLET PO SCH (08:59)
[2018-02-11] MEDS: QUEtiapine FUMARATE 100 MG TABLET PO SCH ×3 (09:00→16:03)
[2018-02-11] MEDS: OLANZapine 10 MG TABLET PO SCH ×2 (09:00→20:07)
[2018-02-11] MEDS: NALTREXONE HCL 50 MG TABLET PO SCH (09:00)
[2018-02-11] MEDS: TOPIRAMATE 100 MG TABLET PO SCH ×2 (09:01→16:03)
[2018-02-11] MEDS: HYDROCORTISONE 0.5% 30 GM CREAM TP SCH ×2 (09:02→16:03)
[2018-02-11] MEDS: NICOTINE 21 MG/24 HOUR PATCH TD SCH (09:02)
[2018-02-11] MEDS: VALPROIC ACID 250 MG/5 ML SYRUP UDCUP PO SCH ×2 (09:04→20:06)
[2018-02-11] MEDS: HALOPERIDOL 5 MG TABLET PO PRN (15:45)
[2018-02-11] MEDS: LORazepam 2 MG TABLET PO PRN (15:45)
[2018-02-11 16:11] VITALS: BP 139/88
[2018-02-11] MEDS: IBUPROFEN 600 MG TABLET PO PRN (16:11)
[2018-02-11 17:11] VITALS: BP 139/91
[2018-02-11] MEDS: QUEtiapine FUMARATE 200 MG TABLET PO SCH (20:07)
[2018-02-12 08:26] VITALS: BP 138/69
[2018-02-12] MEDS: NICOTINE 21 MG/24 HOUR PATCH TD SCH (09:07)
[2018-02-12] MEDS: VALPROIC ACID 250 MG/5 ML SYRUP UDCUP PO SCH ×2 (09:08→20:12)
[2018-02-12] MEDS: LORazepam 2 MG TABLET PO PRN (09:10)
[2018-02-12] MEDS: TOPIRAMATE 100 MG TABLET PO SCH ×2 (09:10→15:55)
[2018-02-12] MEDS: HALOPERIDOL 5 MG TABLET PO PRN (09:10)
[2018-02-12] MEDS: LISINOPRIL 20 MG TABLET PO SCH (09:11)
[2018-02-12] MEDS: OLANZapine 10 MG TABLET PO SCH ×2 (09:11→20:13)
[2018-02-12] MEDS: GABAPENTIN 300 MG CAPSULE PO SCH ×3 (09:11→15:55)
[2018-02-12] MEDS: NALTREXONE HCL 50 MG TABLET PO SCH (09:11)
[2018-02-12] MEDS: PARoxetine HCL 20 MG TABLET PO SCH (09:11)
[2018-02-12] MEDS: QUEtiapine FUMARATE 100 MG TABLET PO SCH ×3 (09:11→15:55)
[2018-02-12] MEDS: HYDROCORTISONE 0.5% 30 GM CREAM TP SCH ×2 (09:11→15:55)
[2018-02-12 12:41] VITALS: BP 138/69
[2018-02-12] MEDS: ACETAMINOPHEN 325 MG TABLET PO PRN (12:41)
[2018-02-12] MEDS: IBUPROFEN 600 MG TABLET PO PRN (16:51)
[2018-02-12 17:00] VITALS: BP 108/76
[2018-02-12] MEDS: QUEtiapine FUMARATE 200 MG TABLET PO SCH (20:12)
[2018-02-12] MEDS: ZOLPIDEM TARTRATE 10 MG TABLET PO PRN (23:40)
[2018-02-13] MEDS: NICOTINE 21 MG/24 HOUR PATCH TD SCH (08:51)
[2018-02-13] MEDS: GABAPENTIN 300 MG CAPSULE PO SCH ×3 (08:51→16:50)
[2018-02-13] MEDS: OLANZapine 10 MG TABLET PO SCH ×2 (08:52→21:34)
[2018-02-13] MEDS: LISINOPRIL 20 MG TABLET PO SCH (08:52)
[2018-02-13] MEDS: PARoxetine HCL 20 MG TABLET PO SCH (08:52)
[2018-02-13] MEDS: QUEtiapine FUMARATE 100 MG TABLET PO SCH ×3 (08:52→16:50)
[2018-02-13] MEDS: NALTREXONE HCL 50 MG TABLET PO SCH (08:53)
[2018-02-13] MEDS: TOPIRAMATE 100 MG TABLET PO SCH ×2 (08:53→16:50)
[2018-02-13] MEDS: HYDROCORTISONE 0.5% 30 GM CREAM TP SCH ×2 (08:53→16:50)
[2018-02-13 09:00] VITALS: BP 121/89
[2018-02-13] MEDS: VALPROIC ACID 250 MG/5 ML SYRUP UDCUP PO SCH ×2 (11:56→21:34)
[2018-02-13] MEDS: LORazepam 2 MG TABLET PO PRN (15:54)
[2018-02-13] MEDS: HALOPERIDOL 5 MG TABLET PO PRN (15:54)
[2018-02-13 16:32] VITALS: BP 140/73
[2018-02-13] MEDS: IBUPROFEN 600 MG TABLET PO PRN (21:22)
[2018-02-13] MEDS: QUEtiapine FUMARATE 200 MG TABLET PO SCH (21:34)
[2018-02-13 22:22] VITALS: BP 130/77
[2018-02-14 08:51] VITALS: BP 106/55
[2018-02-14] MEDS: OLANZapine 10 MG TABLET PO SCH ×2 (09:24→20:21)
[2018-02-14] MEDS: GABAPENTIN 300 MG CAPSULE PO SCH ×3 (09:25→16:11)
[2018-02-14] MEDS: PARoxetine HCL 20 MG TABLET PO SCH (09:25)
[2018-02-14] MEDS: LISINOPRIL 20 MG TABLET PO SCH (09:25)
[2018-02-14] MEDS: QUEtiapine FUMARATE 100 MG TABLET PO SCH ×3 (09:25→16:11)
[2018-02-14] MEDS: NALTREXONE HCL 50 MG TABLET PO SCH (09:26)
[2018-02-14] MEDS: TOPIRAMATE 100 MG TABLET PO SCH ×2 (09:26→16:11)
[2018-02-14] MEDS: HYDROCORTISONE 0.5% 30 GM CREAM TP SCH ×2 (09:26→16:16)
[2018-02-14] MEDS: NICOTINE 21 MG/24 HOUR PATCH TD SCH (09:28)
[2018-02-14] MEDS: VALPROIC ACID 250 MG/5 ML SYRUP UDCUP PO SCH ×2 (09:29→20:20)
[2018-02-14] MEDS: IBUPROFEN 600 MG TABLET PO PRN (12:31)
[2018-02-14 12:32] VITALS: BP 118/62
[2018-02-14 13:32] VITALS: BP 120/72
[2018-02-14 16:56] VITALS: BP 127/86
[2018-02-14] MEDS: QUEtiapine FUMARATE 200 MG TABLET PO SCH (20:21)
[2018-02-15 08:50] VITALS: BP 135/68
[2018-02-15] MEDS: QUEtiapine FUMARATE 100 MG TABLET PO SCH ×3 (10:41→16:07)
[2018-02-15] MEDS: OLANZapine 10 MG TABLET PO SCH ×2 (10:42→20:00)
[2018-02-15] MEDS: NALTREXONE HCL 50 MG TABLET PO SCH (10:42)
[2018-02-15] MEDS: GABAPENTIN 300 MG CAPSULE PO SCH ×3 (10:42→16:08)
[2018-02-15] MEDS: LISINOPRIL 20 MG TABLET PO SCH (10:43)
[2018-02-15] MEDS: PARoxetine HCL 20 MG TABLET PO SCH (10:43)
[2018-02-15] MEDS: TOPIRAMATE 100 MG TABLET PO SCH ×2 (10:43→16:07)
[2018-02-15] MEDS: NICOTINE 21 MG/24 HOUR PATCH TD SCH (10:44)
[2018-02-15] MEDS: HYDROCORTISONE 0.5% 30 GM CREAM TP SCH ×2 (10:44→16:07)
[2018-02-15] MEDS: VALPROIC ACID 250 MG/5 ML SYRUP UDCUP PO SCH ×2 (10:45→19:59)
[2018-02-15 14:43] VITALS: BP 121/73
[2018-02-15] MEDS: IBUPROFEN 600 MG TABLET PO PRN (14:43)
[2018-02-15 16:00] VITALS: BP 142/73
[2018-02-15] MEDS: LORazepam 2 MG TABLET PO PRN (16:07)
[2018-02-15] MEDS: HALOPERIDOL 5 MG TABLET PO PRN (16:07)
[2018-02-15] MEDS: QUEtiapine FUMARATE 200 MG TABLET PO SCH (20:00)
[2018-02-15] MEDS: ZOLPIDEM TARTRATE 10 MG TABLET PO PRN (21:22)
[2018-02-16] MEDS: IBUPROFEN 600 MG TABLET PO PRN ×2 (07:01→20:45)
[2018-02-16 07:02] VITALS: BP 135/74
[2018-02-16] MEDS: OLANZapine 10 MG TABLET PO SCH ×2 (07:51→20:23)
[2018-02-16] MEDS: GABAPENTIN 300 MG CAPSULE PO SCH ×3 (07:51→17:02)
[2018-02-16] MEDS: LORazepam 2 MG TABLET PO PRN ×2 (07:51→13:17)
[2018-02-16] MEDS: VALPROIC ACID 250 MG/5 ML SYRUP UDCUP PO SCH ×2 (07:51→20:23)
[2018-02-16] MEDS: NALTREXONE HCL 50 MG TABLET PO SCH (07:52)
[2018-02-16] MEDS: QUEtiapine FUMARATE 100 MG TABLET PO SCH ×3 (07:52→17:02)
[2018-02-16] MEDS: PARoxetine HCL 20 MG TABLET PO SCH (07:52)
[2018-02-16] MEDS: LISINOPRIL 20 MG TABLET PO SCH (07:52)
[2018-02-16] MEDS: HALOPERIDOL 5 MG TABLET PO PRN ×2 (07:52→13:17)
[2018-02-16] MEDS: TOPIRAMATE 100 MG TABLET PO SCH ×2 (07:52→17:02)
[2018-02-16] MEDS: HYDROCORTISONE 0.5% 30 GM CREAM TP SCH ×2 (07:53→17:02)
[2018-02-16] MEDS: NICOTINE 21 MG/24 HOUR PATCH TD SCH ×2 (07:53→07:59)
[2018-02-16 08:38] VITALS: BP 123/75
[2018-02-16] MEDS: ALBUTEROL SULFATE HFA 90 MCG/PUFF 8 GM INHALER IH PRN (09:37)
[2018-02-16] MEDS ORDERED: HALOPERIDOL LACTATE 5 MG/ML VIAL IM ONE (10:15)
[2018-02-16] MEDS ORDERED: DiphenhydrAMINE HCL 50 MG/ML VIAL IM ONE (10:15)
[2018-02-16] MEDS ORDERED: LORazepam 2 MG/ML VIAL IM ONE (10:15)
[2018-02-16] MEDS: FLUTICASONE PROPIONATE 50 MCG/SPRAY 16 GM NASAL SPRAY NASAL SCH (13:30)
[2018-02-16] MEDS: BENZOCAINE/MENTHOL LOZENGE MM PRN (14:13)
[2018-02-16 16:58] VITALS: BP 126/76
[2018-02-16] MEDS: QUEtiapine FUMARATE 200 MG TABLET PO SCH (20:24)
[2018-02-17] MEDS: OLANZapine 10 MG TABLET PO SCH ×2 (08:01→20:18)
[2018-02-17] MEDS: GABAPENTIN 300 MG CAPSULE PO SCH ×3 (08:01→16:13)
[2018-02-17] MEDS: PARoxetine HCL 20 MG TABLET PO SCH (08:01)
[2018-02-17] MEDS: LORazepam 2 MG TABLET PO PRN ×2 (08:01→12:30)
[2018-02-17] MEDS: LISINOPRIL 20 MG TABLET PO SCH (08:02)
[2018-02-17] MEDS: VALPROIC ACID 250 MG/5 ML SYRUP UDCUP PO SCH ×2 (08:02→20:18)
[2018-02-17] MEDS: NALTREXONE HCL 50 MG TABLET PO SCH (08:02)
[2018-02-17] MEDS: NICOTINE 21 MG/24 HOUR PATCH TD SCH (08:02)
[2018-02-17] MEDS: TOPIRAMATE 100 MG TABLET PO SCH ×2 (08:02→16:14)
[2018-02-17] MEDS: HALOPERIDOL 5 MG TABLET PO PRN ×2 (08:02→12:30)
[2018-02-17] MEDS: QUEtiapine FUMARATE 100 MG TABLET PO SCH ×3 (08:02→16:13)
[2018-02-17] MEDS: FLUTICASONE PROPIONATE 50 MCG/SPRAY 16 GM NASAL SPRAY NASAL SCH (08:03)
[2018-02-17] MEDS: HYDROCORTISONE 0.5% 30 GM CREAM TP SCH ×2 (08:04→16:14)
[2018-02-17] MEDS: BENZOCAINE/MENTHOL LOZENGE MM PRN (08:08)
[2018-02-17 08:25] VITALS: BP 139/101
[2018-02-17] MEDS: IBUPROFEN 600 MG TABLET PO PRN ×2 (08:25→18:32)
[2018-02-17 16:00] VITALS: BP 138/91
[2018-02-17 18:32] VITALS: BP 133/83
[2018-02-17 19:32] VITALS: BP 130/92
[2018-02-17] MEDS: QUEtiapine FUMARATE 200 MG TABLET PO SCH (20:18)
[2018-02-17] MEDS: ZOLPIDEM TARTRATE 10 MG TABLET PO PRN (22:03)
[2018-02-18] MEDS: VALPROIC ACID 250 MG/5 ML SYRUP UDCUP PO SCH ×2 (07:58→20:04)
[2018-02-18] MEDS: NALTREXONE HCL 50 MG TABLET PO SCH (07:59)
[2018-02-18] MEDS: GABAPENTIN 300 MG CAPSULE PO SCH ×3 (07:59→16:53)
[2018-02-18] MEDS: QUEtiapine FUMARATE 100 MG TABLET PO SCH ×3 (07:59→16:53)
[2018-02-18] MEDS: PARoxetine HCL 20 MG TABLET PO SCH (07:59)
[2018-02-18] MEDS: LISINOPRIL 20 MG TABLET PO SCH (07:59)
[2018-02-18] MEDS: OLANZapine 10 MG TABLET PO SCH ×2 (08:00→20:04)
[2018-02-18] MEDS: TOPIRAMATE 100 MG TABLET PO SCH ×2 (08:00→16:51)
[2018-02-18] MEDS: IBUPROFEN 600 MG TABLET PO PRN (08:01)
[2018-02-18] MEDS: NICOTINE 21 MG/24 HOUR PATCH TD SCH (08:05)
[2018-02-18] MEDS: FLUTICASONE PROPIONATE 50 MCG/SPRAY 16 GM NASAL SPRAY NASAL SCH (08:05)
[2018-02-18 08:31] VITALS: BP 130/81
[2018-02-18] MEDS: HYDROCORTISONE 0.5% 30 GM CREAM TP SCH ×2 (09:00→16:51)
[2018-02-18 17:00] VITALS: BP 131/77
[2018-02-18] MEDS: QUEtiapine FUMARATE 200 MG TABLET PO SCH (20:04)
[2018-02-18] MEDS: ZOLPIDEM TARTRATE 10 MG TABLET PO PRN (21:13)
[2018-02-19 04:35] VITALS: BP 155/72
[2018-02-19] MEDS: IBUPROFEN 600 MG TABLET PO PRN ×2 (04:40→12:22)
[2018-02-19] MEDS: BENZOCAINE/MENTHOL LOZENGE MM PRN ×2 (04:40→16:10)
[2018-02-19] MEDS: VALPROIC ACID 250 MG/5 ML SYRUP UDCUP PO SCH ×2 (07:42→20:25)
[2018-02-19] MEDS: QUEtiapine FUMARATE 100 MG TABLET PO SCH ×3 (07:42→16:12)
[2018-02-19] MEDS: LISINOPRIL 20 MG TABLET PO SCH (07:42)
[2018-02-19] MEDS: GABAPENTIN 300 MG CAPSULE PO SCH ×3 (07:42→16:12)
[2018-02-19] MEDS: OLANZapine 10 MG TABLET PO SCH ×2 (07:42→20:26)
[2018-02-19] MEDS: PARoxetine HCL 20 MG TABLET PO SCH (07:43)
[2018-02-19] MEDS: TOPIRAMATE 100 MG TABLET PO SCH ×2 (07:43→16:10)
[2018-02-19] MEDS: NALTREXONE HCL 50 MG TABLET PO SCH (07:43)
[2018-02-19] MEDS: FLUTICASONE PROPIONATE 50 MCG/SPRAY 16 GM NASAL SPRAY NASAL SCH (07:43)
[2018-02-19] MEDS: NICOTINE 21 MG/24 HOUR PATCH TD SCH (07:47)
[2018-02-19 08:10] VITALS: BP 127/77
[2018-02-19] MEDS: HALOPERIDOL 5 MG TABLET PO PRN ×2 (08:40→16:11)
[2018-02-19] MEDS: LORazepam 2 MG TABLET PO PRN ×2 (08:40→16:11)
[2018-02-19] MEDS: HYDROCORTISONE 0.5% 30 GM CREAM TP SCH ×2 (08:41→16:10)
[2018-02-19 12:22] VITALS: BP 142/92
[2018-02-19 16:00] VITALS: BP 150/96
[2018-02-19] MEDS: ZOLPIDEM TARTRATE 10 MG TABLET PO PRN (20:25)
[2018-02-19] MEDS: QUEtiapine FUMARATE 200 MG TABLET PO SCH (20:26)
[2018-02-20 06:00] VITALS: BP 117/76
[2018-02-20] MEDS: IBUPROFEN 600 MG TABLET PO PRN ×3 (06:04→18:20)
[2018-02-20] MEDS: VALPROIC ACID 250 MG/5 ML SYRUP UDCUP PO SCH ×2 (08:15→20:26)
[2018-02-20] MEDS: GABAPENTIN 300 MG CAPSULE PO SCH ×3 (08:15→16:15)
[2018-02-20] MEDS: OLANZapine 10 MG TABLET PO SCH ×2 (08:16→20:26)
[2018-02-20] MEDS: NALTREXONE HCL 50 MG TABLET PO SCH (08:16)
[2018-02-20] MEDS: LISINOPRIL 20 MG TABLET PO SCH (08:16)
[2018-02-20] MEDS: QUEtiapine FUMARATE 100 MG TABLET PO SCH ×3 (08:17→16:15)
[2018-02-20] MEDS: TOPIRAMATE 100 MG TABLET PO SCH ×2 (08:17→16:15)
[2018-02-20] MEDS: PARoxetine HCL 20 MG TABLET PO SCH (08:18)
[2018-02-20] MEDS: FLUTICASONE PROPIONATE 50 MCG/SPRAY 16 GM NASAL SPRAY NASAL SCH (08:19)
[2018-02-20] MEDS: HALOPERIDOL 5 MG TABLET PO PRN ×2 (08:22→16:15)
[2018-02-20] MEDS: NICOTINE 21 MG/24 HOUR PATCH TD SCH (08:23)
[2018-02-20] MEDS: LORazepam 2 MG TABLET PO PRN ×2 (08:23→16:15)
[2018-02-20] MEDS: BENZOCAINE/MENTHOL LOZENGE MM PRN (08:47)
[2018-02-20] MEDS: HYDROCORTISONE 0.5% 30 GM CREAM TP SCH ×2 (08:47→16:15)
[2018-02-20 08:56] VITALS: BP 153/90
[2018-02-20 18:20] VITALS: BP 126/84
[2018-02-20 19:01] VITALS: BP 150/96
[2018-02-20] MEDS: ZOLPIDEM TARTRATE 10 MG TABLET PO PRN (20:25)
[2018-02-20] MEDS: QUEtiapine FUMARATE 200 MG TABLET PO SCH (20:26)
[2018-02-21 03:36] VITALS: BP 124/78
[2018-02-21] MEDS: IBUPROFEN 600 MG TABLET PO PRN ×2 (03:36→09:34)
[2018-02-21] MEDS: FLUTICASONE PROPIONATE 50 MCG/SPRAY 16 GM NASAL SPRAY NASAL SCH (08:13)
[2018-02-21] MEDS: VALPROIC ACID 250 MG/5 ML SYRUP UDCUP PO SCH ×2 (08:14→21:05)
[2018-02-21] MEDS: PARoxetine HCL 20 MG TABLET PO SCH (08:15)
[2018-02-21] MEDS: GABAPENTIN 300 MG CAPSULE PO SCH ×3 (08:15→16:08)
[2018-02-21] MEDS: QUEtiapine FUMARATE 100 MG TABLET PO SCH ×3 (08:16→16:08)
[2018-02-21] MEDS: NALTREXONE HCL 50 MG TABLET PO SCH (08:16)
[2018-02-21] MEDS: TOPIRAMATE 100 MG TABLET PO SCH ×2 (08:16→16:08)
[2018-02-21] MEDS: LISINOPRIL 20 MG TABLET PO SCH (08:17)
[2018-02-21] MEDS: OLANZapine 10 MG TABLET PO SCH ×2 (08:18→21:05)
[2018-02-21] MEDS: HYDROCORTISONE 0.5% 30 GM CREAM TP SCH ×2 (08:24→16:08)
[2018-02-21] MEDS: NICOTINE 21 MG/24 HOUR PATCH TD SCH (08:24)
[2018-02-21 08:39] VITALS: BP 120/80
[2018-02-21] MEDS: ACETAMINOPHEN 325 MG TABLET PO PRN ×2 (14:26→23:43)
[2018-02-21 16:09] VITALS: BP 127/98
[2018-02-21] MEDS: QUEtiapine FUMARATE 200 MG TABLET PO SCH (21:05)
[2018-02-21] MEDS: ZOLPIDEM TARTRATE 10 MG TABLET PO PRN (21:05)
[2018-02-21 23:44] VITALS: BP 122/63
[2018-02-22] MEDS: GABAPENTIN 300 MG CAPSULE PO SCH ×3 (08:20→17:16)
[2018-02-22] MEDS: LISINOPRIL 20 MG TABLET PO SCH (08:20)
[2018-02-22] MEDS: TOPIRAMATE 100 MG TABLET PO SCH ×2 (08:20→17:15)
[2018-02-22] MEDS: VALPROIC ACID 250 MG/5 ML SYRUP UDCUP PO SCH ×2 (08:20→20:28)
[2018-02-22] MEDS: QUEtiapine FUMARATE 100 MG TABLET PO SCH ×3 (08:20→17:16)
[2018-02-22] MEDS: NALTREXONE HCL 50 MG TABLET PO SCH (08:21)
[2018-02-22] MEDS: OLANZapine 10 MG TABLET PO SCH ×2 (08:21→20:28)
[2018-02-22] MEDS: FLUTICASONE PROPIONATE 50 MCG/SPRAY 16 GM NASAL SPRAY NASAL SCH (08:22)
[2018-02-22] MEDS: PARoxetine HCL 20 MG TABLET PO SCH (08:22)
[2018-02-22] MEDS: BENZOCAINE 10% 7 GM GEL TP PRN ×2 (08:22→12:12)
[2018-02-22] MEDS: NICOTINE 21 MG/24 HOUR PATCH TD SCH (08:29)
[2018-02-22 08:40] VITALS: BP 137/86
[2018-02-22] MEDS: HYDROCORTISONE 0.5% 30 GM CREAM TP SCH ×2 (09:00→17:16)
[2018-02-22] MEDS: IBUPROFEN 600 MG TABLET PO PRN ×2 (12:09→18:00)
[2018-02-22] MEDS: ACETAMINOPHEN 325 MG TABLET PO PRN (13:51)
[2018-02-22 16:49] VITALS: BP 134/84
[2018-02-22] MEDS: QUEtiapine FUMARATE 200 MG TABLET PO SCH (20:28)
[2018-02-22] MEDS: ZOLPIDEM TARTRATE 10 MG TABLET PO PRN (21:03)
[2018-02-23] MEDS: VALPROIC ACID 250 MG/5 ML SYRUP UDCUP PO SCH ×2 (08:06→20:33)
[2018-02-23] MEDS: OLANZapine 10 MG TABLET PO SCH ×2 (08:07→20:34)
[2018-02-23] MEDS: GABAPENTIN 300 MG CAPSULE PO SCH ×3 (08:07→16:05)
[2018-02-23] MEDS: PARoxetine HCL 20 MG TABLET PO SCH (08:07)
[2018-02-23] MEDS: IBUPROFEN 600 MG TABLET PO PRN (08:07)
[2018-02-23] MEDS: QUEtiapine FUMARATE 100 MG TABLET PO SCH ×3 (08:07→16:05)
[2018-02-23] MEDS: LISINOPRIL 20 MG TABLET PO SCH (08:08)
[2018-02-23] MEDS: HYDROCORTISONE 0.5% 30 GM CREAM TP SCH ×2 (08:08→16:06)
[2018-02-23] MEDS: NICOTINE 21 MG/24 HOUR PATCH TD SCH (08:08)
[2018-02-23] MEDS: TOPIRAMATE 100 MG TABLET PO SCH ×2 (08:09→16:05)
[2018-02-23] MEDS: NALTREXONE HCL 50 MG TABLET PO SCH (08:09)
[2018-02-23 08:14] VITALS: BP 159/79
[2018-02-23] MEDS: FLUTICASONE PROPIONATE 50 MCG/SPRAY 16 GM NASAL SPRAY NASAL SCH (09:15)
[2018-02-23] MEDS: BENZOCAINE 10% 7 GM GEL TP PRN ×2 (09:16→18:07)
[2018-02-23 10:13] VITALS: BP 151/94
[2018-02-23] MEDS ORDERED: TraMADol HCL 50 MG TABLET PO PRN (12:15)
[2018-02-23] MEDS: CHLORHEXIDINE GLUCONATE 0.12% 15 ML UDCUP ORAL RINSE PO SCH ×3 (13:22→20:33)
[2018-02-23 13:29] VITALS: BP 151/94
[2018-02-23 14:29] VITALS: BP 137/91
[2018-02-23] MEDS: CLINDAMYCIN HCL 150 MG CAPSULE PO SCH (16:05)
[2018-02-23 16:10] VITALS: BP 146/84
[2018-02-23] MEDS: ACETAMINOPHEN 325 MG TABLET PO PRN (16:13)
[2018-02-23] MEDS ORDERED: KETOROLAC TROMETHAMINE 60 MG/2 ML VIAL IM ONE (20:00)
[2018-02-23] MEDS: QUEtiapine FUMARATE 200 MG TABLET PO SCH (20:33)
[2018-02-24] MEDS: HALOPERIDOL 5 MG TABLET PO PRN ×2 (08:07→16:18)
[2018-02-24] MEDS: OLANZapine 10 MG TABLET PO SCH ×2 (08:07→20:51)
[2018-02-24] MEDS: TOPIRAMATE 100 MG TABLET PO SCH ×2 (08:07→16:18)
[2018-02-24] MEDS: LORazepam 2 MG TABLET PO PRN ×2 (08:07→16:18)
[2018-02-24] MEDS: FLUTICASONE PROPIONATE 50 MCG/SPRAY 16 GM NASAL SPRAY NASAL SCH (08:07)
[2018-02-24] MEDS: VALPROIC ACID 250 MG/5 ML SYRUP UDCUP PO SCH ×2 (08:07→20:50)
[2018-02-24] MEDS: LISINOPRIL 20 MG TABLET PO SCH (08:07)
[2018-02-24] MEDS: GABAPENTIN 300 MG CAPSULE PO SCH ×3 (08:08→16:19)
[2018-02-24] MEDS: NALTREXONE HCL 50 MG TABLET PO SCH (08:08)
[2018-02-24] MEDS: PARoxetine HCL 20 MG TABLET PO SCH (08:08)
[2018-02-24] MEDS: QUEtiapine FUMARATE 100 MG TABLET PO SCH ×3 (08:08→16:19)
[2018-02-24] MEDS: CLINDAMYCIN HCL 150 MG CAPSULE PO SCH ×3 (08:08→16:19)
[2018-02-24] MEDS: CHLORHEXIDINE GLUCONATE 0.12% 15 ML UDCUP ORAL RINSE PO SCH ×4 (09:00→21:00)
[2018-02-24] MEDS: NICOTINE 21 MG/24 HOUR PATCH TD SCH (09:00)
[2018-02-24] MEDS: HYDROCORTISONE 0.5% 30 GM CREAM TP SCH ×2 (09:00→16:19)
[2018-02-24 09:32] VITALS: BP 140/92
[2018-02-24] MEDS: BENZOCAINE 10% 7 GM GEL TP PRN ×2 (10:47→21:01)
[2018-02-24] MEDS: KETOROLAC TROMETHAMINE 60 MG/2 ML VIAL IM SCH (12:06)
[2018-02-24 16:19] VITALS: BP 127/85
[2018-02-24] MEDS: ZOLPIDEM TARTRATE 10 MG TABLET PO PRN (20:51)
[2018-02-24 21:00] VITALS: BP 130/70
[2018-02-24] MEDS: QUEtiapine FUMARATE 200 MG TABLET PO SCH (21:00)
[2018-02-24] MEDS: ACETAMINOPHEN 325 MG TABLET PO PRN (21:01)
[2018-02-25 04:15] VITALS: BP 130/85
[2018-02-25] MEDS: ACETAMINOPHEN 325 MG TABLET PO PRN ×2 (04:18→15:38)
[2018-02-25] MEDS: KETOROLAC TROMETHAMINE 60 MG/2 ML VIAL IM SCH (07:54)
[2018-02-25] MEDS: VALPROIC ACID 250 MG/5 ML SYRUP UDCUP PO SCH ×2 (07:55→20:03)
[2018-02-25] MEDS: BENZOCAINE 10% 7 GM GEL TP PRN ×2 (07:55→16:51)
[2018-02-25] MEDS: FLUTICASONE PROPIONATE 50 MCG/SPRAY 16 GM NASAL SPRAY NASAL SCH (07:55)
[2018-02-25] MEDS: CLINDAMYCIN HCL 150 MG CAPSULE PO SCH ×3 (07:56→16:02)
[2018-02-25] MEDS: PARoxetine HCL 20 MG TABLET PO SCH (07:56)
[2018-02-25] MEDS: GABAPENTIN 300 MG CAPSULE PO SCH ×3 (07:56→16:02)
[2018-02-25] MEDS: TOPIRAMATE 100 MG TABLET PO SCH ×2 (07:56→16:02)
[2018-02-25] MEDS: LORazepam 2 MG TABLET PO PRN (07:56)
[2018-02-25] MEDS: QUEtiapine FUMARATE 100 MG TABLET PO SCH ×3 (07:56→16:02)
[2018-02-25] MEDS: OLANZapine 10 MG TABLET PO SCH ×2 (07:56→20:04)
[2018-02-25] MEDS: LISINOPRIL 20 MG TABLET PO SCH (07:56)
[2018-02-25] MEDS: HALOPERIDOL 5 MG TABLET PO PRN (07:56)
[2018-02-25] MEDS: NALTREXONE HCL 50 MG TABLET PO SCH (07:56)
[2018-02-25] MEDS: CHLORHEXIDINE GLUCONATE 0.12% 15 ML UDCUP ORAL RINSE PO SCH ×4 (07:57→20:03)
[2018-02-25] MEDS: HYDROCORTISONE 0.5% 30 GM CREAM TP SCH ×2 (07:57→16:02)
[2018-02-25] MEDS: NICOTINE 21 MG/24 HOUR PATCH TD SCH (07:57)
[2018-02-25 09:11] VITALS: BP 138/88
[2018-02-25 15:38] VITALS: BP 146/91
[2018-02-25 17:38] VITALS: BP 140/103
[2018-02-25 18:57] VITALS: BP 149/103
[2018-02-25] MEDS: IBUPROFEN 600 MG TABLET PO PRN (18:57)
[2018-02-25 19:57] VITALS: BP 153/85
[2018-02-25] MEDS: QUEtiapine FUMARATE 200 MG TABLET PO SCH (20:03)
[2018-02-25] MEDS: ZOLPIDEM TARTRATE 10 MG TABLET PO PRN (20:04)
[2018-02-26 05:31] VITALS: BP 114/84
[2018-02-26] MEDS: IBUPROFEN 600 MG TABLET PO PRN (05:31)
[2018-02-26] MEDS: PARoxetine HCL 20 MG TABLET PO SCH (07:52)
[2018-02-26] MEDS: GABAPENTIN 300 MG CAPSULE PO SCH ×3 (07:52→17:02)
[2018-02-26] MEDS: VALPROIC ACID 250 MG/5 ML SYRUP UDCUP PO SCH ×2 (07:52→20:23)
[2018-02-26] MEDS: OLANZapine 10 MG TABLET PO SCH ×2 (07:52→20:23)
[2018-02-26] MEDS: LISINOPRIL 20 MG TABLET PO SCH (07:53)
[2018-02-26] MEDS: LORazepam 2 MG TABLET PO PRN ×2 (07:53→17:02)
[2018-02-26] MEDS: FLUTICASONE PROPIONATE 50 MCG/SPRAY 16 GM NASAL SPRAY NASAL SCH (07:53)
[2018-02-26] MEDS: QUEtiapine FUMARATE 100 MG TABLET PO SCH ×3 (07:53→17:02)
[2018-02-26] MEDS: HYDROCORTISONE 0.5% 30 GM CREAM TP SCH ×2 (07:53→17:02)
[2018-02-26] MEDS: TOPIRAMATE 100 MG TABLET PO SCH ×2 (07:53→17:02)
[2018-02-26] MEDS: HALOPERIDOL 5 MG TABLET PO PRN ×2 (07:53→17:02)
[2018-02-26] MEDS: CHLORHEXIDINE GLUCONATE 0.12% 15 ML UDCUP ORAL RINSE PO SCH ×4 (07:54→20:23)
[2018-02-26] MEDS: CLINDAMYCIN HCL 150 MG CAPSULE PO SCH ×3 (07:54→17:02)
[2018-02-26] MEDS: NICOTINE 21 MG/24 HOUR PATCH TD SCH (07:54)
[2018-02-26] MEDS: NALTREXONE HCL 50 MG TABLET PO SCH (07:54)
[2018-02-26] MEDS: KETOROLAC TROMETHAMINE 60 MG/2 ML VIAL IM SCH ×2 (07:56→10:44)
[2018-02-26 08:24] VITALS: BP 132/81
[2018-02-26 16:39] VITALS: BP 114/92
[2018-02-26] MEDS: QUEtiapine FUMARATE 200 MG TABLET PO SCH (20:23)
[2018-02-26] MEDS: ZOLPIDEM TARTRATE 10 MG TABLET PO PRN (20:23)
[2018-02-27] MEDS: KETOROLAC TROMETHAMINE 60 MG/2 ML VIAL IM SCH (07:34)
[2018-02-27 08:00] VITALS: BP 145/97
[2018-02-27] MEDS: VALPROIC ACID 250 MG/5 ML SYRUP UDCUP PO SCH ×2 (08:05→20:10)
[2018-02-27] MEDS: OLANZapine 10 MG TABLET PO SCH ×2 (08:05→20:11)
[2018-02-27] MEDS: HALOPERIDOL 5 MG TABLET PO PRN ×2 (08:06→16:00)
[2018-02-27] MEDS: LISINOPRIL 20 MG TABLET PO SCH (08:06)
[2018-02-27] MEDS: QUEtiapine FUMARATE 100 MG TABLET PO SCH ×3 (08:06→16:00)
[2018-02-27] MEDS: PARoxetine HCL 20 MG TABLET PO SCH (08:06)
[2018-02-27] MEDS: LORazepam 2 MG TABLET PO PRN ×2 (08:06→16:00)
[2018-02-27] MEDS: HYDROCORTISONE 0.5% 30 GM CREAM TP SCH ×2 (08:07→16:00)
[2018-02-27] MEDS: CHLORHEXIDINE GLUCONATE 0.12% 15 ML UDCUP ORAL RINSE PO SCH ×4 (08:07→20:08)
[2018-02-27] MEDS: TOPIRAMATE 100 MG TABLET PO SCH ×2 (08:07→16:00)
[2018-02-27] MEDS: GABAPENTIN 300 MG CAPSULE PO SCH ×3 (08:07→16:00)
[2018-02-27] MEDS: CLINDAMYCIN HCL 150 MG CAPSULE PO SCH ×3 (08:07→16:00)
[2018-02-27] MEDS: NICOTINE 21 MG/24 HOUR PATCH TD SCH (08:07)
[2018-02-27] MEDS: FLUTICASONE PROPIONATE 50 MCG/SPRAY 16 GM NASAL SPRAY NASAL SCH (08:07)
[2018-02-27] MEDS: NALTREXONE HCL 50 MG TABLET PO SCH (08:08)
[2018-02-27] MEDS: ACETAMINOPHEN 325 MG TABLET PO PRN (14:46)
[2018-02-27 16:00] VITALS: BP 139/90
[2018-02-27] MEDS: QUEtiapine FUMARATE 200 MG TABLET PO SCH (20:11)
[2018-02-27] MEDS: ZOLPIDEM TARTRATE 10 MG TABLET PO PRN (20:11)
[2018-02-28] MEDS: IBUPROFEN 600 MG TABLET PO PRN ×3 (06:38→23:48)
[2018-02-28 07:38] VITALS: BP 136/95
[2018-02-28] MEDS: GABAPENTIN 300 MG CAPSULE PO SCH ×3 (08:28→16:17)
[2018-02-28] MEDS: LORazepam 2 MG TABLET PO PRN (08:29)
[2018-02-28] MEDS: LISINOPRIL 20 MG TABLET PO SCH (08:29)
[2018-02-28] MEDS: OLANZapine 10 MG TABLET PO SCH ×2 (08:29→20:06)
[2018-02-28] MEDS: QUEtiapine FUMARATE 100 MG TABLET PO SCH ×3 (08:29→16:18)
[2018-02-28] MEDS: HALOPERIDOL 5 MG TABLET PO PRN (08:29)
[2018-02-28] MEDS: PARoxetine HCL 20 MG TABLET PO SCH (08:29)
[2018-02-28] MEDS: VALPROIC ACID 250 MG/5 ML SYRUP UDCUP PO SCH ×2 (08:29→20:05)
[2018-02-28] MEDS: CHLORHEXIDINE GLUCONATE 0.12% 15 ML UDCUP ORAL RINSE PO SCH ×4 (08:30→20:06)
[2018-02-28] MEDS: TOPIRAMATE 100 MG TABLET PO SCH ×2 (08:30→16:17)
[2018-02-28] MEDS: NALTREXONE HCL 50 MG TABLET PO SCH (08:30)
[2018-02-28] MEDS: CLINDAMYCIN HCL 150 MG CAPSULE PO SCH ×3 (08:30→16:17)
[2018-02-28] MEDS: FLUTICASONE PROPIONATE 50 MCG/SPRAY 16 GM NASAL SPRAY NASAL SCH (08:31)
[2018-02-28 08:33] VITALS: BP 136/95
[2018-02-28] MEDS: NICOTINE 21 MG/24 HOUR PATCH TD SCH (09:00)
[2018-02-28] MEDS: KETOROLAC TROMETHAMINE 60 MG/2 ML VIAL IM SCH (12:10)
[2018-02-28] MEDS: HYDROCORTISONE 0.5% 30 GM CREAM TP SCH ×2 (12:10→16:18)
[2018-02-28 12:28] VITALS: BP 125/66
[2018-02-28 16:41] VITALS: BP 114/71
[2018-02-28] MEDS: QUEtiapine FUMARATE 200 MG TABLET PO SCH (20:06)
[2018-02-28] MEDS: ZOLPIDEM TARTRATE 10 MG TABLET PO PRN (20:32)
[2018-02-28 23:48] VITALS: BP 120/75
[2018-03-01] MEDS: LORazepam 2 MG TABLET PO PRN ×2 (07:53→16:03)
[2018-03-01] MEDS: VALPROIC ACID 250 MG/5 ML SYRUP UDCUP PO SCH ×2 (07:53→20:00)
[2018-03-01] MEDS: QUEtiapine FUMARATE 100 MG TABLET PO SCH ×3 (07:53→16:03)
[2018-03-01] MEDS: OLANZapine 10 MG TABLET PO SCH ×2 (07:53→20:00)
[2018-03-01] MEDS: GABAPENTIN 300 MG CAPSULE PO SCH ×3 (07:53→16:03)
[2018-03-01] MEDS: HALOPERIDOL 5 MG TABLET PO PRN (07:53)
[2018-03-01] MEDS: PARoxetine HCL 20 MG TABLET PO SCH (07:53)
[2018-03-01] MEDS: LISINOPRIL 20 MG TABLET PO SCH (07:53)
[2018-03-01] MEDS: CLINDAMYCIN HCL 150 MG CAPSULE PO SCH ×3 (07:54→16:04)
[2018-03-01] MEDS: TOPIRAMATE 100 MG TABLET PO SCH ×2 (07:54→16:04)
[2018-03-01] MEDS: CHLORHEXIDINE GLUCONATE 0.12% 15 ML UDCUP ORAL RINSE PO SCH ×4 (07:54→20:00)
[2018-03-01] MEDS: NALTREXONE HCL 50 MG TABLET PO SCH (07:54)
[2018-03-01] MEDS: HYDROCORTISONE 0.5% 30 GM CREAM TP SCH ×2 (07:55→16:05)
[2018-03-01] MEDS: NICOTINE 21 MG/24 HOUR PATCH TD SCH (07:55)
[2018-03-01] MEDS: FLUTICASONE PROPIONATE 50 MCG/SPRAY 16 GM NASAL SPRAY NASAL SCH (07:55)
[2018-03-01 08:44] VITALS: BP 142/85
[2018-03-01] MEDS: ACETAMINOPHEN 325 MG TABLET PO PRN ×2 (08:44→16:04)
[2018-03-01] MEDS: IBUPROFEN 600 MG TABLET PO PRN (12:39)
[2018-03-01 16:07] VITALS: BP 142/93
[2018-03-01] MEDS: QUEtiapine FUMARATE 200 MG TABLET PO SCH (20:00)
[2018-03-01] MEDS: ZOLPIDEM TARTRATE 10 MG TABLET PO PRN (21:32)
[2018-03-02] MEDS: OLANZapine 10 MG TABLET PO SCH ×2 (07:58→20:04)
[2018-03-02] MEDS: QUEtiapine FUMARATE 100 MG TABLET PO SCH ×3 (07:58→15:52)
[2018-03-02] MEDS: NALTREXONE HCL 50 MG TABLET PO SCH (07:58)
[2018-03-02] MEDS: PARoxetine HCL 20 MG TABLET PO SCH (07:58)
[2018-03-02] MEDS: FLUTICASONE PROPIONATE 50 MCG/SPRAY 16 GM NASAL SPRAY NASAL SCH (07:58)
[2018-03-02] MEDS: CHLORHEXIDINE GLUCONATE 0.12% 15 ML UDCUP ORAL RINSE PO SCH ×4 (07:58→20:05)
[2018-03-02] MEDS: LISINOPRIL 20 MG TABLET PO SCH (07:58)
[2018-03-02] MEDS: VALPROIC ACID 250 MG/5 ML SYRUP UDCUP PO SCH ×2 (07:58→20:03)
[2018-03-02] MEDS: GABAPENTIN 300 MG CAPSULE PO SCH ×3 (07:58→15:52)
[2018-03-02] MEDS: TOPIRAMATE 100 MG TABLET PO SCH ×2 (07:58→15:52)
[2018-03-02] MEDS: HYDROCORTISONE 0.5% 30 GM CREAM TP SCH ×2 (07:59→15:53)
[2018-03-02] MEDS: CLINDAMYCIN HCL 150 MG CAPSULE PO SCH ×3 (07:59→15:52)
[2018-03-02] MEDS: NICOTINE 21 MG/24 HOUR PATCH TD SCH (08:12)
[2018-03-02] MEDS: IBUPROFEN 600 MG TABLET PO PRN ×2 (08:13→15:54)
[2018-03-02 08:58] VITALS: BP 134/82
[2018-03-02] MEDS: ACETAMINOPHEN 325 MG TABLET PO PRN (12:41)
[2018-03-02] MEDS: LORazepam 2 MG TABLET PO PRN (15:50)
[2018-03-02 15:53] VITALS: BP 139/69
[2018-03-02 16:00] VITALS: BP 146/93
[2018-03-02] MEDS: QUEtiapine FUMARATE 200 MG TABLET PO SCH (20:05)
[2018-03-02] MEDS: ZOLPIDEM TARTRATE 10 MG TABLET PO PRN (20:20)
[2018-03-03 05:30] VITALS: BP 134/80
[2018-03-03] MEDS: IBUPROFEN 600 MG TABLET PO PRN ×2 (05:30→15:35)
[2018-03-03] MEDS: CLINDAMYCIN HCL 150 MG CAPSULE PO SCH ×3 (08:02→16:19)
[2018-03-03] MEDS: TOPIRAMATE 100 MG TABLET PO SCH ×2 (08:02→16:19)
[2018-03-03] MEDS: HYDROCORTISONE 0.5% 30 GM CREAM TP SCH ×2 (08:02→16:19)
[2018-03-03] MEDS: CHLORHEXIDINE GLUCONATE 0.12% 15 ML UDCUP ORAL RINSE PO SCH ×4 (08:02→20:06)
[2018-03-03] MEDS: FLUTICASONE PROPIONATE 50 MCG/SPRAY 16 GM NASAL SPRAY NASAL SCH (08:03)
[2018-03-03] MEDS: NALTREXONE HCL 50 MG TABLET PO SCH (08:03)
[2018-03-03] MEDS: VALPROIC ACID 250 MG/5 ML SYRUP UDCUP PO SCH ×2 (08:06→20:05)
[2018-03-03] MEDS: QUEtiapine FUMARATE 100 MG TABLET PO SCH ×3 (08:06→16:18)
[2018-03-03] MEDS: OLANZapine 10 MG TABLET PO SCH ×2 (08:06→20:05)
[2018-03-03] MEDS: LISINOPRIL 20 MG TABLET PO SCH (08:06)
[2018-03-03] MEDS: GABAPENTIN 300 MG CAPSULE PO SCH ×3 (08:07→16:18)
[2018-03-03] MEDS: PARoxetine HCL 20 MG TABLET PO SCH (08:07)
[2018-03-03] MEDS: NICOTINE 21 MG/24 HOUR PATCH TD SCH (08:23)
[2018-03-03 08:40] VITALS: BP 138/100
[2018-03-03] MEDS: LORazepam 2 MG TABLET PO PRN ×2 (12:56→20:52)
[2018-03-03] MEDS: HALOPERIDOL 5 MG TABLET PO PRN ×2 (12:56→21:35)
[2018-03-03 15:36] VITALS: BP 135/78
[2018-03-03 16:32] VITALS: BP 132/64
[2018-03-03] MEDS: QUEtiapine FUMARATE 200 MG TABLET PO SCH (20:05)
[2018-03-03] MEDS: ZOLPIDEM TARTRATE 10 MG TABLET PO PRN (20:20)
[2018-03-04] MEDS: LORazepam 2 MG TABLET PO PRN ×2 (07:46→12:04)
[2018-03-04] MEDS: HALOPERIDOL 5 MG TABLET PO PRN (07:46)
[2018-03-04] MEDS: LISINOPRIL 20 MG TABLET PO SCH (08:09)
[2018-03-04] MEDS: QUEtiapine FUMARATE 100 MG TABLET PO SCH ×3 (08:09→16:14)
[2018-03-04] MEDS: NALTREXONE HCL 50 MG TABLET PO SCH (08:09)
[2018-03-04] MEDS: TOPIRAMATE 100 MG TABLET PO SCH ×2 (08:09→16:14)
[2018-03-04] MEDS: PARoxetine HCL 20 MG TABLET PO SCH (08:09)
[2018-03-04] MEDS: GABAPENTIN 300 MG CAPSULE PO SCH ×3 (08:09→16:14)
[2018-03-04] MEDS: VALPROIC ACID 250 MG/5 ML SYRUP UDCUP PO SCH ×2 (08:09→20:08)
[2018-03-04] MEDS: CLINDAMYCIN HCL 150 MG CAPSULE PO SCH ×3 (08:10→16:14)
[2018-03-04] MEDS: CHLORHEXIDINE GLUCONATE 0.12% 15 ML UDCUP ORAL RINSE PO SCH ×4 (08:10→20:09)
[2018-03-04] MEDS: OLANZapine 10 MG TABLET PO SCH ×2 (08:10→20:09)
[2018-03-04] MEDS: FLUTICASONE PROPIONATE 50 MCG/SPRAY 16 GM NASAL SPRAY NASAL SCH (08:11)
[2018-03-04] MEDS: HYDROCORTISONE 0.5% 30 GM CREAM TP SCH ×2 (08:33→16:14)
[2018-03-04] MEDS: NICOTINE 21 MG/24 HOUR PATCH TD SCH (09:00)
[2018-03-04 09:20] VITALS: BP 155/93
[2018-03-04 16:45] VITALS: BP 131/71
[2018-03-04] MEDS ORDERED: LORazepam 2 MG/ML VIAL IM ONE (18:00)
[2018-03-04] MEDS ORDERED: HALOPERIDOL LACTATE 5 MG/ML VIAL IM ONE (18:00)
[2018-03-04] MEDS ORDERED: DiphenhydrAMINE HCL 50 MG/ML VIAL IM ONE (18:00)
[2018-03-04] MEDS: QUEtiapine FUMARATE 200 MG TABLET PO SCH (20:09)
[2018-03-04] MEDS: ZOLPIDEM TARTRATE 10 MG TABLET PO PRN (20:09)
[2018-03-05 08:21] VITALS: BP 149/86
[2018-03-05] MEDS: IBUPROFEN 600 MG TABLET PO PRN ×2 (08:21→18:25)
[2018-03-05] MEDS: OLANZapine 10 MG TABLET PO SCH ×2 (08:28→20:02)
[2018-03-05] MEDS: LISINOPRIL 20 MG TABLET PO SCH (08:28)
[2018-03-05] MEDS: QUEtiapine FUMARATE 100 MG TABLET PO SCH ×3 (08:28→16:03)
[2018-03-05] MEDS: GABAPENTIN 300 MG CAPSULE PO SCH ×3 (08:29→16:03)
[2018-03-05] MEDS: PARoxetine HCL 20 MG TABLET PO SCH (08:29)
[2018-03-05] MEDS: VALPROIC ACID 250 MG/5 ML SYRUP UDCUP PO SCH ×2 (08:29→20:01)
[2018-03-05] MEDS: CLINDAMYCIN HCL 150 MG CAPSULE PO SCH ×2 (08:29→12:07)
[2018-03-05] MEDS: HYDROCORTISONE 0.5% 30 GM CREAM TP SCH ×2 (08:30→16:03)
[2018-03-05] MEDS: TOPIRAMATE 100 MG TABLET PO SCH ×2 (08:30→16:03)
[2018-03-05] MEDS: CHLORHEXIDINE GLUCONATE 0.12% 15 ML UDCUP ORAL RINSE PO SCH (08:30)
[2018-03-05] MEDS: NALTREXONE HCL 50 MG TABLET PO SCH (08:30)
[2018-03-05] MEDS: FLUTICASONE PROPIONATE 50 MCG/SPRAY 16 GM NASAL SPRAY NASAL SCH (08:35)
[2018-03-05] MEDS: NICOTINE 21 MG/24 HOUR PATCH TD SCH (08:35)
[2018-03-05] MEDS: LORazepam 2 MG TABLET PO PRN ×2 (15:34→20:56)
[2018-03-05] MEDS: HALOPERIDOL 5 MG TABLET PO PRN ×2 (15:46→20:56)
[2018-03-05 16:29] VITALS: BP 130/94
[2018-03-05 18:26] VITALS: BP 135/87
[2018-03-05] MEDS: QUEtiapine FUMARATE 200 MG TABLET PO SCH (20:02)
[2018-03-05] MEDS: ZOLPIDEM TARTRATE 10 MG TABLET PO PRN (20:06)
[2018-03-06 06:19] LABS: HEMATOCRIT 37.2 % (41-53); HEMOGLOBIN 12.8 g/dL (13.5-17.5); MEAN CORPUSCULAR HEMOGLOBIN 34.2 pg (26.0-34.0); MEAN CORPUSCULAR HGB CONC 34.3 G/dL (31.0-37.0); MEAN CORPUSCULAR VOLUME 100 fL (80-100); PLATELET COUNT (AUTO) 282 K/uL (150-450); RED BLOOD CELL COUNT(AUTO) 3.74 MIL/uL (4.50-5.90); RED CELL DISTRIBUTION WIDTH 12.4 % (11.5-14.5)
[2018-03-06 07:07] LABS: ANION GAP 4 mmol/L (8-16); CALCIUM, TOTAL 8.1 mg/dL (8.8-10.5); CARBON DIOXIDE 29 mmol/L (22-29); CHLORIDE 104 mmol/L (98-107); CREATININE 0.76 mg/dL (0.60-1.30); GLOMERULAR FILTR. RATE CALC > 60 mL/min (>60); GLUCOSE,RANDOM 92 mg/dL (70-110); PHOSPHORUS 4.8 mg/dL (2.5-4.9); POTASSIUM 4.2 mmol/L (3.5-5.1); SODIUM SERUM 137 mmol/L (136-145); UREA NITROGEN, BLOOD 21 mg/dL (7-18)
[2018-03-06 07:20] LABS: BAND NEUTROPHILS % (MANUAL) 1 % (0-5); EOSINOPHILS % (MANUAL) 1 % (1-6); LYMPHOCYTES % (MANUAL) 33 % (22-44); MONOCYTES % (MANUAL) 5 % (2-9); SEGMENTED NEUTROPHILS % 60 % (40-70)
[2018-03-06] MEDS: GABAPENTIN 300 MG CAPSULE PO SCH ×3 (07:56→16:45)
[2018-03-06] MEDS: NALTREXONE HCL 50 MG TABLET PO SCH (07:56)
[2018-03-06] MEDS: TOPIRAMATE 100 MG TABLET PO SCH ×2 (07:56→16:45)
[2018-03-06] MEDS: QUEtiapine FUMARATE 100 MG TABLET PO SCH ×3 (07:57→16:45)
[2018-03-06] MEDS: VALPROIC ACID 250 MG/5 ML SYRUP UDCUP PO SCH ×2 (07:57→20:05)
[2018-03-06] MEDS: NICOTINE 21 MG/24 HOUR PATCH TD SCH (07:57)
[2018-03-06] MEDS: PARoxetine HCL 20 MG TABLET PO SCH (07:57)
[2018-03-06] MEDS: OLANZapine 10 MG TABLET PO SCH ×2 (07:57→20:06)
[2018-03-06] MEDS: LISINOPRIL 20 MG TABLET PO SCH (07:57)
[2018-03-06] MEDS: FLUTICASONE PROPIONATE 50 MCG/SPRAY 16 GM NASAL SPRAY NASAL SCH (07:57)
[2018-03-06] MEDS: HYDROCORTISONE 0.5% 30 GM CREAM TP SCH ×2 (07:58→16:45)
[2018-03-06 08:00] VITALS: BP 145/92
[2018-03-06] MEDS: HALOPERIDOL 5 MG TABLET PO PRN (15:52)
[2018-03-06] MEDS: LORazepam 2 MG TABLET PO PRN (15:52)
[2018-03-06 17:01] VITALS: BP 137/93
[2018-03-06] MEDS: QUEtiapine FUMARATE 200 MG TABLET PO SCH (20:05)
[2018-03-06] MEDS: ZOLPIDEM TARTRATE 10 MG TABLET PO PRN (20:05)
[2018-03-06] MEDS: CHLORHEXIDINE GLUCONATE 0.12% 15 ML UDCUP ORAL RINSE PO SCH (22:04)
[2018-03-07] MEDS: FLUTICASONE PROPIONATE 50 MCG/SPRAY 16 GM NASAL SPRAY NASAL SCH (08:04)
[2018-03-07] MEDS: CHLORHEXIDINE GLUCONATE 0.12% 15 ML UDCUP ORAL RINSE PO SCH ×4 (08:04→20:00)
[2018-03-07] MEDS: VALPROIC ACID 250 MG/5 ML SYRUP UDCUP PO SCH ×2 (08:05→20:02)
[2018-03-07] MEDS: HALOPERIDOL 5 MG TABLET PO PRN ×2 (08:06→19:09)
[2018-03-07] MEDS: OLANZapine 10 MG TABLET PO SCH ×2 (08:06→20:05)
[2018-03-07] MEDS: TOPIRAMATE 100 MG TABLET PO SCH ×2 (08:06→17:11)
[2018-03-07] MEDS: GABAPENTIN 300 MG CAPSULE PO SCH ×3 (08:06→16:25)
[2018-03-07] MEDS: NALTREXONE HCL 50 MG TABLET PO SCH (08:06)
[2018-03-07] MEDS: LORazepam 2 MG TABLET PO PRN ×3 (08:06→19:09)
[2018-03-07] MEDS: PARoxetine HCL 20 MG TABLET PO SCH (08:06)
[2018-03-07] MEDS: QUEtiapine FUMARATE 100 MG TABLET PO SCH ×3 (08:06→16:25)
[2018-03-07] MEDS: LISINOPRIL 20 MG TABLET PO SCH (08:06)
[2018-03-07] MEDS: HYDROCORTISONE 0.5% 30 GM CREAM TP SCH ×2 (08:07→16:26)
[2018-03-07 08:58] VITALS: BP 123/88
[2018-03-07] MEDS: NICOTINE 21 MG/24 HOUR PATCH TD SCH (09:00)
[2018-03-07 16:06] VITALS: BP 117/81
[2018-03-07 18:25] VITALS: BP 144/93
[2018-03-07] MEDS: IBUPROFEN 600 MG TABLET PO PRN (18:34)
[2018-03-07 19:25] VITALS: BP 126/85
[2018-03-07] MEDS: QUEtiapine FUMARATE 200 MG TABLET PO SCH (20:00)
[2018-03-07] MEDS: ZOLPIDEM TARTRATE 10 MG TABLET PO PRN (20:01)
[2018-03-08] MEDS: CHLORHEXIDINE GLUCONATE 0.12% 15 ML UDCUP ORAL RINSE PO SCH ×4 (08:15→20:44)
[2018-03-08] MEDS: FLUTICASONE PROPIONATE 50 MCG/SPRAY 16 GM NASAL SPRAY NASAL SCH (08:15)
[2018-03-08] MEDS: HYDROCORTISONE 0.5% 30 GM CREAM TP SCH ×2 (08:15→16:37)
[2018-03-08] MEDS: VALPROIC ACID 250 MG/5 ML SYRUP UDCUP PO SCH ×2 (08:16→20:43)
[2018-03-08] MEDS: OLANZapine 10 MG TABLET PO SCH ×2 (08:16→20:43)
[2018-03-08] MEDS: LORazepam 2 MG TABLET PO PRN ×3 (08:16→23:54)
[2018-03-08] MEDS: LISINOPRIL 20 MG TABLET PO SCH (08:16)
[2018-03-08] MEDS: HALOPERIDOL 5 MG TABLET PO PRN ×2 (08:16→16:36)
[2018-03-08] MEDS: GABAPENTIN 300 MG CAPSULE PO SCH ×3 (08:17→16:36)
[2018-03-08] MEDS: TOPIRAMATE 100 MG TABLET PO SCH ×2 (08:17→16:36)
[2018-03-08] MEDS: NALTREXONE HCL 50 MG TABLET PO SCH (08:17)
[2018-03-08] MEDS: PARoxetine HCL 20 MG TABLET PO SCH (08:17)
[2018-03-08] MEDS: QUEtiapine FUMARATE 100 MG TABLET PO SCH ×3 (08:17→16:36)
[2018-03-08] MEDS: NICOTINE 21 MG/24 HOUR PATCH TD SCH (09:00)
[2018-03-08 09:30] VITALS: BP 143/70
[2018-03-08] MEDS: KETOROLAC TROMETHAMINE 30 MG/ML VIAL IM SCH (09:56)
[2018-03-08 18:55] VITALS: BP 137/76
[2018-03-08] MEDS: ZOLPIDEM TARTRATE 10 MG TABLET PO PRN (20:43)
[2018-03-08] MEDS: QUEtiapine FUMARATE 200 MG TABLET PO SCH (20:43)
[2018-03-08 23:54] VITALS: BP 139/81
[2018-03-08] MEDS: IBUPROFEN 600 MG TABLET PO PRN (23:54)
[2018-03-09] MEDS: VALPROIC ACID 250 MG/5 ML SYRUP UDCUP PO SCH ×2 (08:59→20:14)
[2018-03-09] MEDS: HALOPERIDOL 5 MG TABLET PO PRN (08:59)
[2018-03-09] MEDS: LISINOPRIL 20 MG TABLET PO SCH (08:59)
[2018-03-09] MEDS: QUEtiapine FUMARATE 100 MG TABLET PO SCH ×3 (08:59→16:17)
[2018-03-09] MEDS: TOPIRAMATE 100 MG TABLET PO SCH ×2 (08:59→16:17)
[2018-03-09] MEDS: FLUTICASONE PROPIONATE 50 MCG/SPRAY 16 GM NASAL SPRAY NASAL SCH (09:00)
[2018-03-09] MEDS: PARoxetine HCL 20 MG TABLET PO SCH (09:00)
[2018-03-09] MEDS: NICOTINE 21 MG/24 HOUR PATCH TD SCH (09:00)
[2018-03-09] MEDS: GABAPENTIN 300 MG CAPSULE PO SCH ×3 (09:00→16:17)
[2018-03-09] MEDS: LORazepam 2 MG TABLET PO PRN (09:00)
[2018-03-09] MEDS: HYDROCORTISONE 0.5% 30 GM CREAM TP SCH ×2 (09:00→16:17)
[2018-03-09] MEDS: OLANZapine 10 MG TABLET PO SCH ×2 (09:00→20:13)
[2018-03-09] MEDS: CHLORHEXIDINE GLUCONATE 0.12% 15 ML UDCUP ORAL RINSE PO SCH ×4 (09:00→20:14)
[2018-03-09] MEDS: NALTREXONE HCL 50 MG TABLET PO SCH (09:01)
[2018-03-09 10:25] VITALS: BP 148/96
[2018-03-09] MEDS: QUEtiapine FUMARATE 200 MG TABLET PO SCH (20:13)
[2018-03-09] MEDS: ZOLPIDEM TARTRATE 10 MG TABLET PO PRN (21:03)
[2018-03-09 21:50] VITALS: BP 134/83
[2018-03-10] MEDS: QUEtiapine FUMARATE 100 MG TABLET PO SCH ×3 (07:41→16:11)
[2018-03-10] MEDS: LORazepam 2 MG TABLET PO PRN (07:41)
[2018-03-10] MEDS: OLANZapine 10 MG TABLET PO SCH ×2 (07:41→20:05)
[2018-03-10] MEDS: GABAPENTIN 300 MG CAPSULE PO SCH ×3 (07:42→16:11)
[2018-03-10] MEDS: VALPROIC ACID 250 MG/5 ML SYRUP UDCUP PO SCH ×2 (07:42→20:04)
[2018-03-10] MEDS: LISINOPRIL 20 MG TABLET PO SCH (07:42)
[2018-03-10] MEDS: PARoxetine HCL 20 MG TABLET PO SCH (07:42)
[2018-03-10] MEDS: CHLORHEXIDINE GLUCONATE 0.12% 15 ML UDCUP ORAL RINSE PO SCH ×4 (07:43→20:31)
[2018-03-10] MEDS: TOPIRAMATE 100 MG TABLET PO SCH ×2 (07:44→16:11)
[2018-03-10] MEDS: NALTREXONE HCL 50 MG TABLET PO SCH (07:44)
[2018-03-10] MEDS: NICOTINE 21 MG/24 HOUR PATCH TD SCH (07:45)
[2018-03-10] MEDS: FLUTICASONE PROPIONATE 50 MCG/SPRAY 16 GM NASAL SPRAY NASAL SCH (07:45)
[2018-03-10] MEDS: KETOROLAC TROMETHAMINE 30 MG/ML VIAL IM SCH (08:48)
[2018-03-10] MEDS: HYDROCORTISONE 0.5% 30 GM CREAM TP SCH ×2 (08:48→16:12)
[2018-03-10 09:24] VITALS: BP 137/106
[2018-03-10 19:46] VITALS: BP 124/76
[2018-03-10] MEDS: QUEtiapine FUMARATE 200 MG TABLET PO SCH (20:05)
[2018-03-10] MEDS: ZOLPIDEM TARTRATE 10 MG TABLET PO PRN (20:29)
[2018-03-11 08:17] VITALS: BP 118/84
[2018-03-11] MEDS: FLUTICASONE PROPIONATE 50 MCG/SPRAY 16 GM NASAL SPRAY NASAL SCH (09:00)
[2018-03-11] MEDS: NICOTINE 21 MG/24 HOUR PATCH TD SCH (09:00)
[2018-03-11] MEDS: TOPIRAMATE 100 MG TABLET PO SCH ×2 (09:11→16:17)
[2018-03-11] MEDS: HYDROCORTISONE 0.5% 30 GM CREAM TP SCH ×2 (09:12→16:18)
[2018-03-11] MEDS: NALTREXONE HCL 50 MG TABLET PO SCH (09:12)
[2018-03-11] MEDS: OLANZapine 10 MG TABLET PO SCH ×2 (09:12→20:09)
[2018-03-11] MEDS: GABAPENTIN 300 MG CAPSULE PO SCH ×3 (09:12→16:17)
[2018-03-11] MEDS: LISINOPRIL 20 MG TABLET PO SCH (09:13)
[2018-03-11] MEDS: QUEtiapine FUMARATE 100 MG TABLET PO SCH ×3 (09:13→16:17)
[2018-03-11] MEDS: CHLORHEXIDINE GLUCONATE 0.12% 15 ML UDCUP ORAL RINSE PO SCH ×4 (09:14→20:54)
[2018-03-11] MEDS: VALPROIC ACID 250 MG/5 ML SYRUP UDCUP PO SCH ×2 (09:14→20:10)
[2018-03-11] MEDS: PARoxetine HCL 20 MG TABLET PO SCH (09:15)
[2018-03-11] MEDS: AMOXICILLIN TRIHYDRATE 250 MG CAPSULE PO SCH (09:25)
[2018-03-11] MEDS: LORazepam 2 MG TABLET PO PRN (09:25)
[2018-03-11 17:09] VITALS: BP 135/89
[2018-03-11] MEDS: IBUPROFEN 600 MG TABLET PO PRN (17:18)
[2018-03-11] MEDS: QUEtiapine FUMARATE 200 MG TABLET PO SCH (20:09)
[2018-03-11] MEDS: ZOLPIDEM TARTRATE 10 MG TABLET PO PRN (20:56)
[2018-03-12] MEDS: LORazepam 2 MG TABLET PO PRN ×2 (00:18→23:41)
[2018-03-12] MEDS: HALOPERIDOL 5 MG TABLET PO PRN (00:18)
[2018-03-12 02:06] VITALS: BP 137/79
[2018-03-12 08:50] VITALS: BP 137/100
[2018-03-12] MEDS: NICOTINE 21 MG/24 HOUR PATCH TD SCH (09:00)
[2018-03-12] MEDS: LISINOPRIL 20 MG TABLET PO SCH (09:29)
[2018-03-12] MEDS: GABAPENTIN 300 MG CAPSULE PO SCH ×3 (09:29→17:38)
[2018-03-12] MEDS: AMOXICILLIN TRIHYDRATE 250 MG CAPSULE PO SCH (09:29)
[2018-03-12] MEDS: PARoxetine HCL 20 MG TABLET PO SCH (09:29)
[2018-03-12] MEDS: NALTREXONE HCL 50 MG TABLET PO SCH (09:29)
[2018-03-12] MEDS: TOPIRAMATE 100 MG TABLET PO SCH ×2 (09:29→17:38)
[2018-03-12] MEDS: OLANZapine 10 MG TABLET PO SCH ×2 (09:30→20:57)
[2018-03-12] MEDS: QUEtiapine FUMARATE 100 MG TABLET PO SCH ×3 (09:30→17:38)
[2018-03-12] MEDS: KETOROLAC TROMETHAMINE 30 MG/ML VIAL IM SCH (09:30)
[2018-03-12] MEDS: FLUTICASONE PROPIONATE 50 MCG/SPRAY 16 GM NASAL SPRAY NASAL SCH (09:30)
[2018-03-12] MEDS: CHLORHEXIDINE GLUCONATE 0.12% 15 ML UDCUP ORAL RINSE PO SCH ×4 (09:30→20:57)
[2018-03-12] MEDS: VALPROIC ACID 250 MG/5 ML SYRUP UDCUP PO SCH ×2 (09:31→20:57)
[2018-03-12] MEDS: HYDROCORTISONE 0.5% 30 GM CREAM TP SCH ×2 (09:31→17:38)
[2018-03-12 16:00] VITALS: BP 129/75
[2018-03-12] MEDS: QUEtiapine FUMARATE 200 MG TABLET PO SCH (20:57)
[2018-03-12] MEDS: ZOLPIDEM TARTRATE 10 MG TABLET PO PRN (20:57)
[2018-03-13] MEDS: CHLORHEXIDINE GLUCONATE 0.12% 15 ML UDCUP ORAL RINSE PO SCH ×4 (08:00→21:00)
[2018-03-13] MEDS: VALPROIC ACID 250 MG/5 ML SYRUP UDCUP PO SCH ×2 (08:33→20:43)
[2018-03-13] MEDS: LISINOPRIL 20 MG TABLET PO SCH (08:33)
[2018-03-13] MEDS: GABAPENTIN 300 MG CAPSULE PO SCH ×3 (08:33→16:35)
[2018-03-13] MEDS: QUEtiapine FUMARATE 100 MG TABLET PO SCH ×3 (08:33→16:35)
[2018-03-13] MEDS: PARoxetine HCL 20 MG TABLET PO SCH (08:33)
[2018-03-13] MEDS: NALTREXONE HCL 50 MG TABLET PO SCH (08:34)
[2018-03-13] MEDS: OLANZapine 10 MG TABLET PO SCH ×2 (08:34→20:42)
[2018-03-13] MEDS: AMOXICILLIN TRIHYDRATE 250 MG CAPSULE PO SCH (08:34)
[2018-03-13] MEDS: TOPIRAMATE 100 MG TABLET PO SCH ×2 (08:34→16:35)
[2018-03-13] MEDS: HYDROCORTISONE 0.5% 30 GM CREAM TP SCH ×2 (09:00→16:36)
[2018-03-13] MEDS: NICOTINE 21 MG/24 HOUR PATCH TD SCH (09:00)
[2018-03-13] MEDS: FLUTICASONE PROPIONATE 50 MCG/SPRAY 16 GM NASAL SPRAY NASAL SCH (09:00)
[2018-03-13 18:27] VITALS: BP 125/86
[2018-03-13] MEDS: QUEtiapine FUMARATE 200 MG TABLET PO SCH (20:42)
[2018-03-13] MEDS: ZOLPIDEM TARTRATE 10 MG TABLET PO PRN (21:00)
[2018-03-14] MEDS: CHLORHEXIDINE GLUCONATE 0.12% 15 ML UDCUP ORAL RINSE PO SCH ×5 (08:00→21:03)
[2018-03-14] MEDS: LISINOPRIL 20 MG TABLET PO SCH (08:27)
[2018-03-14] MEDS: GABAPENTIN 300 MG CAPSULE PO SCH ×3 (08:27→16:20)
[2018-03-14] MEDS: QUEtiapine FUMARATE 100 MG TABLET PO SCH ×3 (08:27→16:21)
[2018-03-14] MEDS: OLANZapine 10 MG TABLET PO SCH ×2 (08:28→20:36)
[2018-03-14] MEDS: PARoxetine HCL 20 MG TABLET PO SCH (08:28)
[2018-03-14] MEDS: VALPROIC ACID 250 MG/5 ML SYRUP UDCUP PO SCH ×2 (08:29→20:35)
[2018-03-14] MEDS: AMOXICILLIN TRIHYDRATE 250 MG CAPSULE PO SCH (08:29)
[2018-03-14] MEDS: TOPIRAMATE 100 MG TABLET PO SCH ×2 (08:29→16:21)
[2018-03-14] MEDS: NALTREXONE HCL 50 MG TABLET PO SCH (08:30)
[2018-03-14] MEDS: KETOROLAC TROMETHAMINE 30 MG/ML VIAL IM SCH (08:31)
[2018-03-14] MEDS: NICOTINE 21 MG/24 HOUR PATCH TD SCH (08:37)
[2018-03-14] MEDS: FLUTICASONE PROPIONATE 50 MCG/SPRAY 16 GM NASAL SPRAY NASAL SCH (08:37)
[2018-03-14] MEDS: HYDROCORTISONE 0.5% 30 GM CREAM TP SCH ×2 (08:37→16:21)
[2018-03-14 10:43] VITALS: BP 117/81
[2018-03-14 17:02] VITALS: BP 130/77
[2018-03-14] MEDS: QUEtiapine FUMARATE 200 MG TABLET PO SCH (20:35)
[2018-03-14] MEDS: ZOLPIDEM TARTRATE 10 MG TABLET PO PRN (20:59)
[2018-03-15] MEDS: IBUPROFEN 600 MG TABLET PO PRN (06:01)
[2018-03-15] MEDS: VALPROIC ACID 250 MG/5 ML SYRUP UDCUP PO SCH ×2 (07:41→20:26)
[2018-03-15] MEDS: LISINOPRIL 20 MG TABLET PO SCH (07:41)
[2018-03-15] MEDS: PARoxetine HCL 20 MG TABLET PO SCH (07:41)
[2018-03-15] MEDS: GABAPENTIN 300 MG CAPSULE PO SCH ×3 (07:41→16:03)
[2018-03-15] MEDS: NALTREXONE HCL 50 MG TABLET PO SCH (07:42)
[2018-03-15] MEDS: OLANZapine 10 MG TABLET PO SCH ×2 (07:42→20:25)
[2018-03-15] MEDS: LORazepam 2 MG TABLET PO PRN ×2 (07:42→16:03)
[2018-03-15] MEDS: AMOXICILLIN TRIHYDRATE 250 MG CAPSULE PO SCH (07:42)
[2018-03-15] MEDS: QUEtiapine FUMARATE 100 MG TABLET PO SCH ×3 (07:42→16:04)
[2018-03-15] MEDS: HALOPERIDOL 5 MG TABLET PO PRN (07:42)
[2018-03-15] MEDS: TOPIRAMATE 100 MG TABLET PO SCH ×2 (07:42→16:03)
[2018-03-15] MEDS: CHLORHEXIDINE GLUCONATE 0.12% 15 ML UDCUP ORAL RINSE PO SCH ×4 (08:00→20:24)
[2018-03-15] MEDS: NICOTINE 21 MG/24 HOUR PATCH TD SCH (08:19)
[2018-03-15] MEDS: FLUTICASONE PROPIONATE 50 MCG/SPRAY 16 GM NASAL SPRAY NASAL SCH (08:19)
[2018-03-15] MEDS: HYDROCORTISONE 0.5% 30 GM CREAM TP SCH ×2 (08:19→16:04)
[2018-03-15 08:41] VITALS: BP 139/87
[2018-03-15 16:00] VITALS: BP 141/75
[2018-03-15 18:49] VITALS: BP 125/76
[2018-03-15] MEDS: QUEtiapine FUMARATE 200 MG TABLET PO SCH (20:25)
[2018-03-15] MEDS: ZOLPIDEM TARTRATE 10 MG TABLET PO PRN (20:58)
[2018-03-16] MEDS: GABAPENTIN 300 MG CAPSULE PO SCH ×3 (07:55→16:12)
[2018-03-16] MEDS: TOPIRAMATE 100 MG TABLET PO SCH ×2 (07:55→16:13)
[2018-03-16] MEDS: NALTREXONE HCL 50 MG TABLET PO SCH (07:56)
[2018-03-16] MEDS: QUEtiapine FUMARATE 100 MG TABLET PO SCH ×3 (07:56→16:13)
[2018-03-16] MEDS: AMOXICILLIN TRIHYDRATE 250 MG CAPSULE PO SCH (07:56)
[2018-03-16] MEDS: OLANZapine 10 MG TABLET PO SCH ×2 (07:56→20:07)
[2018-03-16] MEDS: LISINOPRIL 20 MG TABLET PO SCH (07:56)
[2018-03-16] MEDS: VALPROIC ACID 250 MG/5 ML SYRUP UDCUP PO SCH ×2 (07:57→20:06)
[2018-03-16] MEDS: FLUTICASONE PROPIONATE 50 MCG/SPRAY 16 GM NASAL SPRAY NASAL SCH (07:58)
[2018-03-16] MEDS: PARoxetine HCL 20 MG TABLET PO SCH (07:58)
[2018-03-16] MEDS: CHLORHEXIDINE GLUCONATE 0.12% 15 ML UDCUP ORAL RINSE PO SCH ×4 (07:58→20:06)
[2018-03-16] MEDS: HYDROCORTISONE 0.5% 30 GM CREAM TP SCH ×2 (08:27→16:13)
[2018-03-16] MEDS: NICOTINE 21 MG/24 HOUR PATCH TD SCH (08:27)
[2018-03-16 09:56] VITALS: BP 123/78
[2018-03-16 16:00] VITALS: BP 142/91
[2018-03-16] MEDS: HALOPERIDOL 5 MG TABLET PO PRN (16:15)
[2018-03-16] MEDS: LORazepam 2 MG TABLET PO PRN (16:15)
[2018-03-16] MEDS: QUEtiapine FUMARATE 200 MG TABLET PO SCH (20:07)
[2018-03-16] MEDS: ZOLPIDEM TARTRATE 10 MG TABLET PO PRN (20:07)
[2018-03-17 08:00] VITALS: BP 137/81
[2018-03-17] MEDS: CHLORHEXIDINE GLUCONATE 0.12% 15 ML UDCUP ORAL RINSE PO SCH ×4 (08:42→20:53)
[2018-03-17] MEDS: GABAPENTIN 300 MG CAPSULE PO SCH ×3 (08:43→17:11)
[2018-03-17] MEDS: QUEtiapine FUMARATE 100 MG TABLET PO SCH ×3 (08:43→17:12)
[2018-03-17] MEDS: NALTREXONE HCL 50 MG TABLET PO SCH (08:43)
[2018-03-17] MEDS: PARoxetine HCL 20 MG TABLET PO SCH (08:43)
[2018-03-17] MEDS: TOPIRAMATE 100 MG TABLET PO SCH ×2 (08:43→17:11)
[2018-03-17] MEDS: VALPROIC ACID 250 MG/5 ML SYRUP UDCUP PO SCH ×2 (08:43→20:53)
[2018-03-17] MEDS: LISINOPRIL 20 MG TABLET PO SCH (08:43)
[2018-03-17] MEDS: AMOXICILLIN TRIHYDRATE 250 MG CAPSULE PO SCH (08:43)
[2018-03-17] MEDS: HYDROCORTISONE 0.5% 30 GM CREAM TP SCH ×2 (09:00→17:12)
[2018-03-17] MEDS: FLUTICASONE PROPIONATE 50 MCG/SPRAY 16 GM NASAL SPRAY NASAL SCH (09:00)
[2018-03-17] MEDS: NICOTINE 21 MG/24 HOUR PATCH TD SCH (09:00)
[2018-03-17] MEDS: OLANZapine 10 MG TABLET PO SCH ×2 (09:12→20:52)
[2018-03-17] MEDS ORDERED: LISI-662 PO (09:57)
[2018-03-17 16:10] VITALS: BP 116/80
[2018-03-17] MEDS: QUEtiapine FUMARATE 200 MG TABLET PO SCH (20:52)
[2018-03-17] MEDS: ZOLPIDEM TARTRATE 10 MG TABLET PO PRN (21:04)
[2018-03-17] MEDS: HALOPERIDOL 5 MG TABLET PO PRN (23:46)
[2018-03-17] MEDS: LORazepam 2 MG TABLET PO PRN (23:46)
[2018-03-18] MEDS: LISINOPRIL 20 MG TABLET PO SCH (07:56)
[2018-03-18] MEDS: VALPROIC ACID 250 MG/5 ML SYRUP UDCUP PO SCH (07:56)
[2018-03-18] MEDS: PARoxetine HCL 20 MG TABLET PO SCH (07:56)
[2018-03-18] MEDS: GABAPENTIN 300 MG CAPSULE PO SCH (07:56)
[2018-03-18] MEDS: TOPIRAMATE 100 MG TABLET PO SCH (07:57)
[2018-03-18] MEDS: AMOXICILLIN TRIHYDRATE 250 MG CAPSULE PO SCH (07:57)
[2018-03-18] MEDS: OLANZapine 10 MG TABLET PO SCH (07:57)
[2018-03-18] MEDS: QUEtiapine FUMARATE 100 MG TABLET PO SCH (07:57)
[2018-03-18] MEDS: NALTREXONE HCL 50 MG TABLET PO SCH (07:57)
[2018-03-18] MEDS: HALOPERIDOL 5 MG TABLET PO PRN (07:58)
[2018-03-18] MEDS: LORazepam 2 MG TABLET PO PRN (07:58)
[2018-03-18 08:00] VITALS: BP 150/95
[2018-03-18] MEDS: CHLORHEXIDINE GLUCONATE 0.12% 15 ML UDCUP ORAL RINSE PO SCH (08:00)
[2018-03-18] MEDS: NICOTINE 21 MG/24 HOUR PATCH TD SCH (09:00)
[2018-03-18] MEDS: HYDROCORTISONE 0.5% 30 GM CREAM TP SCH (09:00)
[2018-03-18] MEDS: FLUTICASONE PROPIONATE 50 MCG/SPRAY 16 GM NASAL SPRAY NASAL SCH (09:00)
[2018-03-18] MEDS ORDERED: FLUT16H NASAL (09:56)
[2018-03-18] MEDS ORDERED: PERID15L MISC (09:56)
[2018-03-18] MEDS ORDERED: AMOX250C4 PO (09:56)
[2018-03-18] MEDS ORDERED: NICO-704 TD (09:58)
[2018-03-18] MEDS ORDERED: VALP250 PO ×2 (10:25)
== END 2018-03-18 11:40 | disposition home or self-care (01) | DRG 885 ==
LOC: EMS 18:42 → UNDOADMIN 22:00 → 3EC 22:00
DX: F25.0 Schizoaffective disorder, bipolar type (principal); Z68.43 Body mass index [BMI] 50.0-59.9, adult; J45.909 Unspecified asthma, uncomplicated; Z23 Encounter for immunization; K21.9 Gastro-esophageal reflux disease without esophagitis; E66.9 Obesity, unspecified; F41.9 Anxiety disorder, unspecified; I10 Essential (primary) hypertension; G47.00 Insomnia, unspecified; F17.200 Nicotine dependence, unspecified, uncomplicated; D64.9 Anemia, unspecified; K08.89 Other specified disorders of teeth and supporting structures; Z79.899 Other long term (current) drug therapy; F11.90 Opioid use, unspecified, uncomplicated; Z71.6 Tobacco abuse counseling
CPT/HCPCS: 83735; 84100; 85007; 87081; 90686; 93005; G0480; J1200; J1630; J1885; J2060; J3535

== ENCOUNTER 2024-03-15 22:46 | Inpatient (IN) | payer MEDICARE, MEDICAID ==
[~2024-03-15] VITALS: Ht 185.4 cm; Wt 109.2 kg
[~2024-03-15 22:46] MED LIST changes: +AMOX250C4 PO; +FLUT16SP NASAL; -LISI-661 PO; +LISI-894 PO; -NALT50TA PO; +NALT50TA6 PO; +NICO-803 TD; +OLAN10 PO; -OLAN10TA20 PO; -OMEP20 PO; +PERID15L MISC; -PRAZ1 PO; -QUET100T33 PO; +QUET100T34 PO; -QUET200T29 PO; +QUET200T30 PO; +VALP250C48 PO; -VALP250S23 PO
[2024-03-16 01:13] LABS: BASOPHILS % (AUTO) 0.5 % (0.0-2.0); EOSINOPHILS % (AUTO) 1.9 % (1.0-6.0); HEMATOCRIT 42.3 % (41-53); HEMOGLOBIN 14.6 g/dL (13.5-17.5); LYMPHOCYTES # (AUTO) 3.3 K/uL (1.0-4.8); LYMPHOCYTES % (AUTO) 36.2 % (22.0-44.0); MEAN CORPUSCULAR HEMOGLOBIN 33.7 pg (26.0-34.0); MEAN CORPUSCULAR HGB CONC 34.5 G/dL (31.0-37.0); MEAN CORPUSCULAR VOLUME 98 fL (80-100); MONOCYTES # (AUTO) 0.6 K/uL (0.1-1.0); MONOCYTES % (AUTO) 6.2 % (2.0-9.0); NEUTROPHILS # (AUTO) 5.1 K/uL (1.8-7.7); NEUTROPHILS % (AUTO) 55.2 % (40.0-70.0); PLATELET COUNT (AUTO) 289 K/uL (150-450); RED BLOOD CELL COUNT(AUTO) 4.33 MIL/uL (4.50-5.90); RED CELL DISTRIBUTION WIDTH 13.4 % (11.5-14.5); WHITE BLOOD COUNT (AUTO) 9.2 K/uL (4.5-11.0)
[2024-03-16 01:21] LABS: ANION GAP 3 mmol/L (8-16); CALCIUM, TOTAL 9.1 mg/dL (8.8-10.5); CARBON DIOXIDE 28 mmol/L (22-29); CHLORIDE 106 mmol/L (98-107); CREATININE 1.08 mg/dL (0.60-1.30); GLOMERULAR FILTR. RATE CALC > 60 mL/min (>60); GLUCOSE,RANDOM 96 mg/dL (70-110); POTASSIUM 3.4 mmol/L (3.5-5.1); SODIUM SERUM 137 mmol/L (136-145); UREA NITROGEN, BLOOD 13 mg/dL (7-18)
[2024-03-16 01:53] LABS: ALCOHOL, BLOOD (SERUM) < 3 mg/dL (0-10)
[2024-03-16 02:19] LABS: COVID AG,FIA SOURCE NASAL SWAB
[2024-03-16 02:36] LABS: SARS-COV2 (COVID) ANTIGEN,FIA Negative (Negative)
[2024-03-16] MEDS: ACETAMINOPHEN 325 MG TABLET PO ONE ×2 (04:46→15:20)
[2024-03-16] MEDS: LORazepam 2 MG TABLET PO ONE ×2 (05:00→15:20)
[2024-03-16 18:28] LABS: AMPHET/METH SCREEN,URINE NEGATIVE (NEGATIVE); BARBITURATE SCREEN, URINE NEGATIVE (NEGATIVE); BENZODIAZEPINES SCREEN,URINE NEGATIVE (NEGATIVE); CANNABINOID SCREEN,URINE NEGATIVE (NEGATIVE); COCAINE SCREEN,URINE NEGATIVE (NEGATIVE); METHADONE SCREEN, URINE NEGATIVE (NEGATIVE); OPIATE SCREEN,URINE NEGATIVE (NEGATIVE); PHENCYCLIDINE SCREEN,URINE NEGATIVE (NEGATIVE)
[2024-03-16 18:29] LABS: ALCOHOL, URINE DRUG SCREEN NEGATIVE (NEGATIVE)
[2024-03-16] MEDS: DiphenhydrAMINE HCL 50 MG/ML VIAL IM ONE (18:55)
[2024-03-16] MEDS: LORazepam 2 MG/ML VIAL IM ONE (18:55)
[2024-03-16] MEDS: HALOPERIDOL LACTATE 5 MG/ML VIAL IM ONE (18:55)
[2024-03-16] MEDS ORDERED: INFLUENZA VIRUS VACCINE TVS (6MO+) 2024-25/PF 45 MCG/0.5 ML SYRINGE IM. ONE (23:45)
[2024-03-17] MEDS ORDERED: MAG HYDROX/ALUMINUM HYD/SIMETH ES 30 ML SUSPENSION UDCUP PO PRN (10:15)
[2024-03-17] MEDS ORDERED: ALBUTEROL SULFATE HFA 90 MCG/PUFF 8 GM INHALER IH PRN (10:15)
[2024-03-17] MEDS ORDERED: BACITRACIN 28 GM OINTMENT TP PRN (10:15)
[2024-03-17] MEDS ORDERED: CloNIDine HCL 0.1 MG TABLET PO PRN (10:15)
[2024-03-17] MEDS ORDERED: LOPERAMIDE HCL 2 MG CAPSULE PO PRN (10:15)
[2024-03-17] MEDS ORDERED: MAGNESIUM HYDROXIDE SUSPENSION 30 ML UDCUP PO PRN (10:15)
[2024-03-17] MEDS ORDERED: PETROLATUM,WHITE 28 GM JELLY TP PRN (10:15)
[2024-03-17] MEDS ORDERED: ONDANSETRON 4 MG TABLET PO PRN (10:15)
[2024-03-17] MEDS ORDERED: IBUPROFEN 600 MG TABLET PO PRN (10:15)
[2024-03-17] MEDS ORDERED: DOCUSATE SODIUM 100 MG CAPSULE PO PRN (10:15)
[2024-03-17] MEDS ORDERED: OMEPRAZOLE 20 MG CAPSULE PO PRN (10:15)
[2024-03-17] MEDS ORDERED: BENZOCAINE/MENTHOL LOZENGE PO PRN (10:15)
[2024-03-17] MEDS: NICOTINE 21 MG/24 HOUR PATCH TD SCH (10:30)
[2024-03-17] MEDS: LORazepam 2 MG TABLET PO PRN (11:12)
[2024-03-17 11:22] VITALS: BP 117/71; PULSE 74; TEMP 97.8
[2024-03-17] MEDS: GABAPENTIN 300 MG CAPSULE PO SCH (12:44)
[2024-03-17] MEDS: HALOPERIDOL 5 MG TABLET PO PRN (15:49)
[2024-03-17] MEDS ORDERED: BusPIRone HCL 10 MG TABLET PO SCH (17:00)
[2024-03-17] MEDS ORDERED: TOPIRAMATE 100 MG TABLET PO SCH (17:00)
[2024-03-17] MEDS: LevETIRAcetam 500 MG TABLET PO SCH (17:34)
[2024-03-17] MEDS: LITHIUM CARBONATE 300 MG CAPSULE PO SCH (17:34)
[2024-03-17] MEDS: DIVALPROEX SODIUM 500 MG DR TABLET PO SCH (17:34)
[2024-03-17 20:34] VITALS: BP 137/77; PULSE 84; RESP 18; TEMP 97.5; O2SAT 99
[2024-03-17] MEDS: OLANZapine 10 MG TABLET PO SCH (20:50)
[2024-03-17] MEDS: ATORVASTATIN CALCIUM 20 MG TABLET PO SCH (20:50)
[2024-03-17] MEDS ORDERED: VALPROIC ACID 250 MG CAPSULE PO SCH (21:00)
[2024-03-18] MEDS: LISINOPRIL 20 MG TABLET PO SCH (08:06)
[2024-03-18] MEDS: OMEGA-3/DHA/EPA/FISH OIL 1,000 MG CAPSULE PO SCH (08:06)
[2024-03-18] MEDS: FLUTICASONE PROPIONATE 50 MCG/SPRAY 16 GM NASAL SPRAY NASAL SCH (08:06)
[2024-03-18] MEDS ORDERED: VALPROIC ACID 250 MG CAPSULE PO SCH (09:00)
[2024-03-18 09:25] VITALS: BP 123/88; PULSE 82; RESP 17; TEMP 97.4; O2SAT 99
[2024-03-18 12:07] VITALS: BP 125/88; PULSE 88; RESP 18; TEMP 97.8; O2SAT 99
[2024-03-18] MEDS: ACETAMINOPHEN 325 MG TABLET PO PRN (12:07)
[2024-03-18 23:01] VITALS: BP 105/58; PULSE 81; RESP 18; TEMP 98.1; O2SAT 99
[2024-03-19 10:03] VITALS: BP 111/68; PULSE 90; RESP 18; TEMP 97.9; O2SAT 98
[2024-03-19 17:48] VITALS: BP 126/74; PULSE 86; RESP 19; TEMP 98.3; O2SAT 98
[2024-03-19 21:33] VITALS: RESP 18
[2024-03-20 09:01] LABS: LITHIUM 0.34 mmol/L (0.60-1.20)
[2024-03-20 09:03] VITALS: BP 109/69; PULSE 75; RESP 18; TEMP 97.6; O2SAT 99
[2024-03-20 20:49] VITALS: RESP 18
[2024-03-20] MEDS: ZOLPIDEM TARTRATE 10 MG TABLET PO PRN (22:33)
[2024-03-21 10:29] VITALS: BP 120/74; PULSE 77; RESP 16; TEMP 97.6; O2SAT 98
[2024-03-21 20:20] VITALS: BP 144/80; PULSE 80; RESP 18; TEMP 97.6; O2SAT 99
[2024-03-22] MEDS: BuPROPion HCL 150 MG SR TABLET PO SCH (08:22)
[2024-03-22 10:08] VITALS: BP 104/70; PULSE 85; RESP 17; TEMP 97.5; O2SAT 99
[2024-03-22 20:08] VITALS: BP 111/72; PULSE 74; RESP 16; TEMP 98.2; O2SAT 99
[2024-03-23 10:27] VITALS: BP 123/72; PULSE 68; RESP 17; TEMP 98.2; O2SAT 97
[2024-03-23 20:40] VITALS: BP 98/61; PULSE 62; RESP 18; TEMP 98.1; O2SAT 98
[2024-03-24 08:00] VITALS: BP 131/91; PULSE 67; RESP 17; TEMP 97.6; O2SAT 95
[2024-03-24] MEDS ORDERED: BUPR-433 PO (14:27)
[2024-03-24] MEDS ORDERED: ATOR20TA PO (14:27)
[2024-03-24] MEDS ORDERED: DIVA-112 PO (14:27)
[2024-03-24] MEDS ORDERED: OLAN10TA74 PO (14:27)
[2024-03-24] MEDS ORDERED: LEVE-71 PO (14:30)
[2024-03-24] MEDS ORDERED: OMEG100033 PO (14:30)
[2024-03-24] MEDS ORDERED: LITH300C3 PO (14:30)
== END 2024-03-24 16:42 | DRG 885 ==
LOC: EMS 22:46 → 3EC 03-16 22:31
PROVIDERS: ADMIT Psychiatry & Neurology Psychiatry; ATTEND Psychiatry & Neurology Psychiatry
DX: F25.0 Schizoaffective disorder, bipolar type (principal); E66.9 Obesity, unspecified; G47.00 Insomnia, unspecified; Z20.822 Contact with and (suspected) exposure to COVID-19; F41.9 Anxiety disorder, unspecified; J45.909 Unspecified asthma, uncomplicated; I10 Essential (primary) hypertension; F17.200 Nicotine dependence, unspecified, uncomplicated; K21.9 Gastro-esophageal reflux disease without esophagitis; G43.909 Migraine, unspecified, not intractable, without status migrainosus; G47.30 Sleep apnea, unspecified; E78.5 Hyperlipidemia, unspecified; Z68.31 Body mass index [BMI] 31.0-31.9, adult
CPT/HCPCS: 74018; 80048; 80164; 80178; 80307; 85025; 87081; 87481; 99285; G0480; 36415-L1; 36415-TC